=== PATIENT | female | born 1950 | race Caucasian/White ===

== ENCOUNTER 2019-03-24 17:06 | Inpatient (IN) ==
[2019-03-24 17:51] LABS: Basophils # (auto) 0.02 K/uL (0-0.2); Basophils % (auto) 0.2 %; Eosinophils # (auto) 0.33 K/uL (0-0.5); Eosinophils % (auto) 3.5 %; Hematocrit (blood only) 31.9 % (37-47); Immature Granulocytes # (auto) 0.02 K/uL (0.00-0.02); Immature Granulocytes % (auto) 0.2 %; Lymphocytes # (auto) 1.74 K/uL (1.2-3.4); Lymphocytes % (auto) 18.6 %; Mean Corpuscular Hemoglobin 28.1 pg (25-34); Mean Corpuscular Hgb Conc 31.3 g/dL (32-36); Mean Corpuscular Volume 89.6 fL (80-100); Mean Platelet Volume 9.7 fL (7.4-10.4); Monocytes # (auto) 0.68 K/uL (0.11-0.59); Monocytes % (auto) 7.3 %; Neutrophils # (auto) 6.58 K/uL (1.4-6.5); Neutrophils % (auto) 70.2 %; Platelet Count 266 K/uL (130-400); RDW Coefficient of Variation 14.8 % (11.5-14.5); RDW Standard Deviation 48.6 fL (36.4-46.3); Red Blood Count 3.56 M/uL (4.2-5.4); White Blood Count 9.37 K/uL (4.8-10.8)
[2019-03-24 18:00] LABS: INR 1.1 (0.9-1.1); Prothrombin Time 10.8 Seconds (9.0-12.0)
--- NOTE | 2019-03-24 18:04 | XRay Report ---
XR hip RT 2V w pelvis HISTORY: 68 years-old Female fall, pain, ?frx acute right hip pain status post fall COMPARISON: None available TECHNIQUE: AP view of the pelvis with 2 views of the right hip FINDINGS: There is an acute obliquely oriented fracture of the subtrochanteric proximal femoral metadiaphysis d emonstrating 5.8 cm impaction/opposition with 30 degrees apex lateral angulation. Mild adjacent soft tissue swelling. Moderate right hip osteoarthritis. Femoral head appears intact. No intertrochanteric or femoral neck fracture identified. Arterial calcifications are noted. IMPRESSION: Acute obliquely oriented displaced and angulated fracture of the proximal femoral shaft. The above report was generated using voice recognition software. It may contain grammatical, syntax o r spelling errors. Electronically signed by: Neil Cox M.D. 03/24/2019 6:03 PM
--- NOTE | 2019-03-24 18:05 | XRay Report ---
XR chest 1V portable HISTORY: Fall. Right hip pain. COMPARISON: None. FINDINGS: The lungs are clear. Cardiac silhouette is normal in size. No pleural effusions. No pneumot horax. IMPRESSION: No acute process. Electronically signed by: Pepito Womack M.D. 03/24/2019 6:04 PM
[2019-03-24 18:12] LABS: Albumin Level 3.4 gm/dl (3.4-5.0); BUN Creatinine Ratio 19.5 (10-20); Calcium 8.7 mg/dl (8.5-10.1); Creatinine Clr Calc Pharmacy 55.1 ml/min; Est GFR (African American) 72.7; Est GFR (Non-African American) 62.7; Potassium 5.6 mmol/L (3.5-5.1)
[2019-03-24] MEDS ORDERED: fentaNYL citrate 100 MCG/2 ML VIAL IV STA (18:14)
[2019-03-24 18:15] LABS: Albumin Globulin Ratio 1.1 (0.9-2); Bilirubin,Total 0.3 mg/dl (0.2-1); Globulin 3.1 gm/dl (2.5-4.0); Total Protein 6.5 gm/dl (6.4-8.2)
--- NOTE | 2019-03-24 18:59 | XRay Report ---
XR femur RT 2V routine HISTORY: 68 years-old Female frx acute fracture of the proximal right femur COMPARISON: Pelvis and right hip radiographs of same day at 5:45 PM TECHNIQUE: 2 views of the right femur FINDINGS: Acute displaced fracture of the proximal femoral shaft redemonstrated. The mid and distal femur appea rs intact as visualized. Demineralized appearance of the bones with degenerative changes of the knee. The study is limited secondary to positioning. Arterial calcifications noted. Soft tissue swelling o f the proximal thigh. IMPRESSION: 1. Acute displaced fracture of the proximal right femur redemonstrated. 2. Demineralized appearance of the bones with degenerative changes of the knee. The above report was generated using voice recognition software. It may contain grammatical, syntax o r spelling errors. Electronically signed by: Neil Cox M.D. 03/24/2019 6:57 PM
[2019-03-24] MEDS ORDERED: SODIUM CHLORIDE 0.9% 500 ML IV ONE ×2 (19:27→23:10)
[2019-03-24] MEDS ORDERED: INSULIN HUMAN REGULAR PER UNIT 10 UNITS in SYRINGE 0 ML IV STA (19:27)
[2019-03-24] MEDS ORDERED: MoRPHine SULFATE 4 MG/ML 1 ML CARP\\VIAL IV STA (19:42)
[2019-03-24] MEDS ORDERED: ACETAMINOPHEN 1,000 MG/100 ML VIAL IV STA (19:42)
--- NOTE | 2019-03-24 19:47 | Emergency Department Note ---
Entered by Radha Coto acting as a scribe for History of Present Illness General Chief complaint: Fall Stated complaint: HIP PAIN Time Seen by Provider: 03/24/19 17:07 Source: patient Mode of arrival: wheelchair Limitations: no limitations History of Present Illness Onset (ago): hour(s) 2 Location: hip (right) Radiation: non-radiation Pain Consistency: + constant Current Pain Intensity: 10 Relieved By: + medication (Fentanyl) Exacerbated By: + movement Associated symptoms: + other (-arm or chest injury) Treatments prior to arrival: other (Fentanyl, Zofran) The patient is a 68 year old female who presents to the ED with complaints of right hip pain after a fall. She was getting ready to walk into a store when she tripped and landed on her right hip. She rates her discomfort as a 10/10 in severity. She has not been able to walk since the fall. She was given Fentanyl and Zofran in the field and states they have provided good relief. She did not hit her head during the fall and denies any LOC. The patient denies any injuries to the arm or chest. She does not take daily blood thinners. Home Medications Home Medications Medication Instructions Recorded Confirmed Type diazepam 5 mg PO HS PRN 03/24/19 03/24/19 History glimepiride 0 mg PO DAILY 03/24/19 03/24/19 History levothyroxine 0 mcg PO DAILYBB 03/24/19 03/24/19 History lisinopril 5 mg PO DAILY 03/24/19 03/24/19 History metformin 1,000 mg PO AMPM 03/24/19 03/24/19 History Allergies Allergy/AdvReac Type Severity Reaction Status Date / Time aspirin Allergy Unknown CAN NOT Verified 03/24/19 17:37 TAKE DUE TO BLEEDING IN EYES Past Med/Surg History Medical History Transverse myelitis Hypertension Diabetes mellitus Social History Preferred Language: Macedonian Feels Safe at Home: Yes Smoking Status: Never smoker Review of Systems See HPI for pertinent positives & negatives. and A total of 10 systems reviewed and were otherwise negative Physical Exam Vital Signs Vital Signs - 24 hr 03/24/19 17:06 03/24/19 18:20 Temperature 36.7 C Temperature Source Oral Sepsis Recent Fever Within 48 Hours No Sepsis New/Unexplained Change in Mental Status No Sepsis Action Taken by Nursing No Action Required Pulse Rate 118 H Pulse Rate [Apical] 118 H 113 H Respiratory Rate 14 16 Respiratory Effort / Characteristics Non-Labored Spontaneous Respiratory Depth Normal Respiratory Pattern Regular Blood Pressure 179/97 H Blood Pressure [Right Arm] 179/97 H 141/73 H Blood Pressure Mean 124 Blood Pressure Mean [Right Arm] 124 95 Blood Pressure Position Lying Blood Pressure Position [Right Arm] Lying Pulse Oximetry 95 94 Oxygen Delivery Method Room Air GENERAL: Awake, alert, appears uncomfortable on litter. HENT: Normocephalic, atraumatic. EYES: Normal conjunctiva. Sclera non-icteric. NECK: Supple. No nuchal rigidity. No midline tenderness. RESPIRATORY: Clear to auscultation with slight forced expiratory wheeze. Normal respiratory effort. CARDIAC: Normal rate. Normal rhythm. Extremities warm and well perfused. GI: Soft, non-distended. No tenderness to palpation. No rebound or guarding. RECTAL: Deferred. MUSCULOSKELETAL: Atraumatic. Chest examination reveals no tenderness. There is no CVA tenderness to palpation. No midline cervical tenderness. LOWER EXTREMITIES: Calves are equal size bilaterally and non-tender. Pedal 1+ edema. Tenderness of right hip and pain with ROM here. NEURO: No slurred speech, no aphasia, decreased motor and sensory function of LE's. SKIN: Warm and dry. No rash or jaundice noted. Course 1712: The patient was evaluated in room B7 and a complete history and physical were performed. 1833: I discussed the patients case with Dr. Ferris Willie [facility]. The patient will be further evaluated. 1842: I discussed the patients case with Dr. Modesto Manzo. The patient will be further evaluated. 1846: I reevaluated the patient. She is resting comfortably. I discussed her results and my recommendation she remain in the hospital for further evaluation and management and she verbalized complete understanding and agreement. Consultations Consultation #1: I discussed the patients case with Willie Begum [facility]. The patient will be further evaluated. Time: 18:33 Consultation #2: I discussed the patients case with Dr. Modesto Manzo. The patient will be further evaluated. Time: 18:42 Administered Medications Discontinued Medications Fentanyl Citrate (Fentanyl Citrate) 100 mcg IV NOW STA Stop: 03/24/19 18:15 Last Admin: 03/24/19 18:19 Dose: 100 mcg Documented by: [id number] Medical Decision Making Differential Diagnosis Differential diagnoses include major intracranial, cervical, spinal, thoracic, abdominal, pelvic and neurologic injury. Fracture, contusion, sprain, strain, laceration, abrasions included as well. Medical Records Attestation: I reviewed the patient's medical records. Home Medications Current Medication List: was personally reviewed by me Laboratory Data Attestation: I reviewed the patient's lab results. Result diagrams: 03/24/19 17:33 03/24/19 17:33 Lab Results 03/24/19 03/24/19 03/24/19 Range/Units 17:33 17:33 17:33 WBC 9.37 (4.8-10.8) K/uL RBC 3.56 L (4.2-5.4) M/uL Hgb 10.0 L (12.0-16.0) g/dL Hct 31.9 L (37-47) % MCV 89.6 (80-100) fL MCH 28.1 (25-34) pg MCHC 31.3 L (32-36) g/dL RDW Std Deviation 48.6 H (36.4-46.3) fL RDW Coeff of Neal 14.8 H (11.5-14.5) % Plt Count 266 (130-400) K/uL MPV 9.7 (7.4-10.4) fL Immature Gran % (Auto) 0.2 % Neut % (Auto) 70.2 % Lymph % (Auto) 18.6 % [place] % (Auto) 7.3 % Eos % (Auto) 3.5 % Baso % (Auto) 0.2 % Immature Gran # (Auto) 0.02 (0.00-0.02) K/uL Neut # (Auto) 6.58 H (1.4-6.5) K/uL Lymph # (Auto) 1.74 (1.2-3.4) K/uL [place] # (Auto) 0.68 H (0.11-0.59) K/uL Eos # (Auto) 0.33 (0-0.5) K/uL Baso # (Auto) 0.02 (0-0.2) K/uL PT 10.8 (9.0-12.0) Seconds INR 1.1 (0.9-1.1) Sodium 140 (136-145) mmol/L Potassium 5.6 H (3.5-5.1) mmol/L Chloride 107 (98-107) mmol/L Carbon Dioxide 23 (21-32) mmol/L Anion Gap 10.0 (3-11) BUN 18 (7-18) mg/dl Creatinine 0.93 (0.6-1.2) mg/dl Est Cr Clr Drug Dosing 55.1 ml/min Est GFR ( Amer) 72.7 Est GFR (Non-Af Amer) 62.7 BUN/Creatinine Ratio 19.5 (10-20) Glucose 190 H (70-99) mg/dl Calcium 8.7 (8.5-10.1) mg/dl Total Bilirubin 0.3 (0.2-1) mg/dl AST 48 H (15-37) U/L ALT 77 (12-78) U/L Alkaline Phosphatase 77 (45-117) U/L Total Protein 6.5 (6.4-8.2) gm/dl Albumin 3.4 (3.4-5.0) gm/dl Globulin 3.1 (2.5-4.0) gm/dl Albumin/Globulin Ratio 1.1 (0.9-2) Blood Type Antibody Screen 03/24/19 Range/Units 17:33 WBC (4.8-10.8) K/uL RBC (4.2-5.4) M/uL Hgb (12.0-16.0) g/dL Hct (37-47) % MCV (80-100) fL MCH (25-34) pg MCHC (32-36) g/dL RDW Std Deviation (36.4-46.3) fL RDW Coeff of Neal (11.5-14.5) % Plt Count (130-400) K/uL MPV (7.4-10.4) fL Immature Gran % (Auto) % Neut % (Auto) % Lymph % (Auto) % [place] % (Auto) % Eos % (Auto) % Baso % (Auto) % Immature Gran # (Auto) (0.00-0.02) K/uL Neut # (Auto) (1.4-6.5) K/uL Lymph # (Auto) (1.2-3.4) K/uL [place] # (Auto) (0.11-0.59) K/uL Eos # (Auto) (0-0.5) K/uL Baso # (Auto) (0-0.2) K/uL PT (9.0-12.0) Seconds INR (0.9-1.1) Sodium (136-145) mmol/L Potassium (3.5-5.1) mmol/L Chloride (98-107) mmol/L Carbon Dioxide (21-32) mmol/L Anion Gap (3-11) BUN (7-18) mg/dl Creatinine (0.6-1.2) mg/dl Est Cr Clr Drug Dosing ml/min Est GFR ( Amer) Est GFR (Non-Af Amer) BUN/Creatinine Ratio (10-20) Glucose (70-99) mg/dl Calcium (8.5-10.1) mg/dl Total Bilirubin (0.2-1) mg/dl AST (15-37) U/L ALT (12-78) U/L Alkaline Phosphatase (45-117) U/L Total Protein (6.4-8.2) gm/dl Albumin (3.4-5.0) gm/dl Globulin (2.5-4.0) gm/dl Albumin/Globulin Ratio (0.9-2) Blood Type A Positive Antibody Screen NEGATIVE Imaging Data Radiologist's Impression: Radiology results as stated below per my review and the radiologist's interpretation: XR hip RT 2V w pelvis HISTORY: 68 years-old Female fall, pain, ?frx acute right hip pain status post fall COMPARISON: None available TECHNIQUE: AP view of the pelvis with 2 views of the right hip FINDINGS: There is an acute obliquely oriented fracture of the subtrochanteric proximal femoral metadiaphysis demonstrating 5.8 cm impaction/opposition with 30 degrees apex lateral angulation. Mild adjacent soft tissue swelling. Moderate right hip osteoarthritis. Femoral head appears intact. No intertrochanteric or femoral neck fracture identified. Arterial calcifications are noted. IMPRESSION: Acute obliquely oriented displaced and angulated fracture of the proximal femoral shaft. The above report was generated using voice recognition software. It may contain grammatical, syntax or spelling errors. Electronically signed by: Neil Cox M.D. 03/24/2019 6:03 PM XR chest 1V portable HISTORY: Fall. Right hip pain. COMPARISON: None. FINDINGS: The lungs are clear. Cardiac silhouette is normal in size. No pleural effusions. No pneumothorax. IMPRESSION: No acute process. Electronically signed by: Pepito Womack M.D. 03/24/2019 6:04 PM XR femur RT 2V routine HISTORY: 68 years-old Female frx acute fracture of the proximal right femur COMPARISON: Pelvis and right hip radiographs of same day at 5:45 PM TECHNIQUE: 2 views of the right femur FINDINGS: Acute displaced fracture of the proximal femoral shaft redemonstrated. The mid and distal femur appears intact as visualized. Demineralized appearance of the bones with degenerative changes of the knee. The study is limited secondary to p ositioning. Arterial calcifications noted. Soft tissue swelling of the proximal thigh. IMPRESSION: 1. Acute displaced fracture of the proximal right femur redemonstrated. 2. Demineralized appearance of the bones with degenerative changes of the knee. The above report was generated using voice recognition software. It may contain grammatical, syntax or spelling errors. Electronically signed by: Neil Cox M.D. 03/24/2019 6:57 PM ECG Data Attestation: I personally reviewed and interpreted this ECG as follows: Indication: other (fall) Rate (beats per minute): 117 Rhythm: sinus tachycardia Findings: + other (Normal intervals); no PVC, no ST depression and no ST elevation Blood Pressure Blood Pressure Findings: Elevated blood pressure Blood Pressure Disposition: further management by hospitalist Head Trauma GCS Score: 15 MDM Narrative Patient is a 68-year-old female with a past medical history including diabetes, hypertension, hyperlipidemia and transverse myelitis with chronic lower extremity numbness normally ablates with canes presenting today after a fall via ambulance complaining of hip pain. She was got his son [facility] the [facility] and tripped and fell onto her right buttock. Right leg shortening severe hip pain. Denies striking her head. Denies any coagulation or antiplatelet usage. Denies pain in her head neck chest or abdomen at this time. Denies injury to the upper extremities. Chronic numbness persistent lower extremities. No evidence of open R femur fracture here. X-ray of the hip/pelvis/femur was obtained. Received fentanyl and Zofran prior to arrival. Pain controlled upon arrival; worse with movement. No believe additional head imaging of the head and neck at this time. Chest x-ray and x-ray of the hip obtained. Fracture noted in the right hip unfortunately. No prior orthopedic work completed. Discussed with on-call orthopedics and given her chronic medical issues discussed with hospitalist for admission. Slight hyperkalemia noted on labs without EKG changes. Hospitalist aware. Orthopedics evaluated in the ER and will plan for possible operative repair tomorrow. Fentanyl and tylenol given for pain. Impression & Plan Closed fracture of proximal end of femur, Fall, Hyperkalemia Discharge Plan Visit Data Chief Complaint: Fall Stated Complaint: HIP PAIN ED Provider: Tevin Holland Discharge Problem: Closed fracture of proximal end of femur, Fall, Hyperkalemia Patient Disposition: Being Evaluated by Hospitalist Forms Stand Alone Forms: My [facility] Prescriptions Prescriptions: No Action glimepiride 1 mg tablet PO DAILY RF: 0 levothyroxine 50 mcg tablet PO DAILYBB RF: 0 metformin 1,000 mg tablet 1,000 mg PO AMPM RF: 0 lisinopril 5 mg tablet 5 mg PO DAILY RF: 0 diazepam 5 mg tablet 5 mg PO HS PRN (Reason: Unknown) RF: 0 Referrals Referrals: Hung Kaur MD [Primary Care Provider] - The scribe's documentation has been prepared under my direction and personally reviewed by me in its entirety. I confirm that the note above accurately reflects all work, treatment, procedures, and medical decision making performed by me.
[2019-03-24] MEDS ORDERED: INSULIN HUMAN REGULAR PER UNIT 5 UNITS in SYRINGE 4.95 ML IV STA (20:15)
--- NOTE | 2019-03-24 20:16 | History & Physical Report ---
Date of Service March 24, 2019 Assessment & Plan (1) Closed right hip fracture: Secondary to mechanical fall hypertension, slightly elevated secondary discomfort Hyperkalemia, possibly from home ACEI, mild rhabdomyolysis (Recurrent hyperkalemia on review of outpatient chemistries from last year) DM 2 on oral medications, well-controlled as of recent outpatient hemoglobin A1c of 6.5 last February 2019 Hypothyroidism, TSH noted to be elevated on last month's outpatient blood draw (4.59) hx transverse myelitis, deficits at baseline left renal mass, likely benign and stable measurement as of recent outpatient [facility] [place] Urology visit March 2018 Acute on chronic anemia, hemoglobin drop from baseline (low iron indices on recent outpatient anemia blood work possibly related to gastric bypass surgery; no prior colonoscopies, no history of overt GI/ blood loss as per patient account) past tobacco abuse. Medical telemetry for hyperkalemia Orthopedics consult RE right hip fracture (Patient already seen by Dr. Ferris at the ER. Surgery recommended tomorrow a.m.) DC lisinopril given recurrent hyperkalemic episodes IV insulin, IVF Recheck serum potassium Follow CPK Initiate Norvasc for BP control. Final preop medical evaluation pending repeat serum potassium result. Trend H&H, transfuse PRBC if hemoglobin less than 7 and/or for symptomatic anemia Basal insulin, ISS BG goal 140-180 DVT prophylaxis. SCDs for now Recommend pharmacologic anticoagulation once bleeding risk is deemed to be minimal and negligible pending Orthopedics re-eval. Full code History of Present Illness Chief Complaint: Fall, right hip pain Primary Care Provider: Hung Kaur MD History obtained from patient, family, and records. Medical history significant for hypertension, hyperlipidemia as per records, DM 2 on oral medications, transverse myelitis, left renal mass, chronic anemia (baseline hemoglobin 11), past tobacco abuse. Recent confinement July 2004 for sudden onset lower extremity weakness attributed to transverse myelitis. Patient transferred to [facility] [place]. Minimal improvement of neurologic deficits with steroid Rx at [facility] [place] [facility]. Patient was entering a local convenience store with her son when she tripped on the sidewalk causing her to fall down on her right side. No head trauma, no chest pain, no S OB, no syncope, no LOC. Patient noted achy right hip pain. Unable to get up. Medical History as above Surgical History : Toe amputation, section, gastric bypass, cataract surgery, vitrectomy, tonsillectomy Family History : Diabetes Personal/Social history : Past tobacco abuse, no EtOH intake, disabled Baseline Functionality : Still able to do housework at the first floor level of her home which has been customized since disability, able to walk with 2 canes, No rest/exertional chest pain, S OB prior to injury Allergies Allergy/AdvReac Type Severity Reaction Status Date / Time aspirin Allergy Unknown CAN NOT Verified 03/24/19 17:37 TAKE DUE TO BLEEDING IN EYES lisinopril AdvReac Mild hyperkalemi Verified 03/25/19 03:26 a Home Medications Home Medications Medication Instructions Recorded Confirmed Type diazepam 5 mg PO HS PRN 03/24/19 03/24/19 History glimepiride 0 mg PO DAILY 03/24/19 03/24/19 History levothyroxine 0 mcg PO DAILYBB 03/24/19 03/24/19 History lisinopril 5 mg PO DAILY 03/24/19 03/24/19 History metformin 1,000 mg PO AMPM 03/24/19 03/24/19 History Past Med/Surg History Medical History Transverse myelitis Hypertension Diabetes mellitus Surgical History H/O gastric bypass Social History Preferred Language: Vietnamese Communication Ability: Effective Telegraph Messenger Required: No Beliefs That Will Affect Care: None Current Living Situation: Spouse Other Information That Helps Us Care for You: No Feels Safe at Home: Yes Safety Concerns: Feels Safe At This Time Smoking Status: Never smoker Do You Dip or Chew Tobacco: No ; Hx Alcohol Use: Yes Hx Substance Use: No Review of Systems Review of Systems: As per HPI, all 10 systems reviewed, all other ROS negative Physical Exam Physical Exam: GENERAL: Slightly uncomfortable, slightly anxious, no respiratory distress SKIN: Pallor , warm HEENT: Pale palpebral conjunctivae, no ptosis, dry buccal mucosa NECK : Supple, no tenderness CHEST : CTA, no tenderness HEART : Tachycardic , no obvious murmurs ABDOMEN: Some distention, nontender EXTREMITIES : RLE noted to be shortened, right hip tenderness, no other conspicuous deformities noted NEUROLOGIC : Coherent, no facial asymmetry; MMTs BUE 4/5, MMTs BLE 1/5 Results & Data Vital Signs (Past 12 Hours) Vital Signs Temp Pulse Pulse Resp BP BP Pulse Ox 03/24/19 18:20 113 H 16 141/73 H 94 03/24/19 17:06 36.7 C 118 H 118 H 14 179/97 H 179/97 H 95 Laboratory Results Laboratory Results WBC 9.37 K/uL (4.8-10.8) 03/24/19 17:33 RBC 3.56 M/uL (4.2-5.4) L 03/24/19 17:33 Hgb 10.0 g/dL (12.0-16.0) L 03/24/19 17:33 Hct 31.9 % (37-47) L 03/24/19 17:33 MCV 89.6 fL (80-100) 03/24/19 17:33 MCH 28.1 pg (25-34) 03/24/19 17:33 MCHC 31.3 g/dL (32-36) L 03/24/19 17:33 RDW Std Deviation 48.6 fL (36.4-46.3) H 03/24/19 17:33 RDW Coeff of Neal 14.8 % (11.5-14.5) H 03/24/19 17:33 Plt Count 266 K/uL (130-400) 03/24/19 17:33 MPV 9.7 fL (7.4-10.4) 03/24/19 17:33 Immature Gran % (Auto) 0.2 % 03/24/19 17:33 Neut % (Auto) 70.2 % 03/24/19 17:33 Lymph % (Auto) 18.6 % 03/24/19 17:33 [place] % (Auto) 7.3 % 03/24/19 17:33 Eos % (Auto) 3.5 % 03/24/19 17:33 Baso % (Auto) 0.2 % 03/24/19 17:33 Immature Gran # (Auto) 0.02 K/uL (0.00-0.02) 03/24/19 17:33 Neut # (Auto) 6.58 K/uL (1.4-6.5) H 03/24/19 17:33 Lymph # (Auto) 1.74 K/uL (1.2-3.4) 03/24/19 17:33 [place] # (Auto) 0.68 K/uL (0.11-0.59) H 03/24/19 17:33 Eos # (Auto) 0.33 K/uL (0-0.5) 03/24/19 17:33 Baso # (Auto) 0.02 K/uL (0-0.2) 03/24/19 17:33 PT 10.8 Seconds (9.0-12.0) 03/24/19 17:33 INR 1.1 (0.9-1.1) 03/24/19 17:33 Sodium 140 mmol/L (136-145) 03/24/19 17:33 Potassium 5.6 mmol/L (3.5-5.1) H 03/24/19 17:33 Chloride 107 mmol/L (98-107) 03/24/19 17:33 Carbon Dioxide 23 mmol/L (21-32) 03/24/19 17:33 Anion Gap 10.0 (3-11) 03/24/19 17:33 BUN 18 mg/dl (7-18) 03/24/19 17:33 Creatinine 0.93 mg/dl (0.6-1.2) 03/24/19 17:33 Est Cr Clr Drug Dosing 55.1 ml/min 03/24/19 17:33 Est GFR ( Amer) 72.7 03/24/19 17:33 Est GFR (Non-Af Amer) 62.7 03/24/19 17:33 BUN/Creatinine Ratio 19.5 (10-20) 03/24/19 17:33 Glucose 190 mg/dl (70-99) H 03/24/19 17:33 Calcium 8.7 mg/dl (8.5-10.1) 03/24/19 17:33 Total Bilirubin 0.3 mg/dl (0.2-1) 03/24/19 17:33 AST 48 U/L (15-37) H 03/24/19 17:33 ALT 77 U/L (12-78) 03/24/19 17:33 Alkaline Phosphatase 77 U/L (45-117) 03/24/19 17:33 Total Protein 6.5 gm/dl (6.4-8.2) 03/24/19 17:33 Albumin 3.4 gm/dl (3.4-5.0) 03/24/19 17:33 Globulin 3.1 gm/dl (2.5-4.0) 03/24/19 17:33 Albumin/Globulin Ratio 1.1 (0.9-2) 03/24/19 17:33 Blood Type A Positive 03/24/19 17:33 Antibody Screen NEGATIVE 03/24/19 17:33 Diagnostic Findings Right femoral x-ray: 1. Acute displaced fracture of the proximal right femur redemonstrated. 2. Demineralized appearance of the bones with degenerative changes of the knee. Chest x-ray : No acute process EKG as per my interpretation : Rate 115, sinus tachycardia, LAD, LAFB, low voltage, peaked T waves
[2019-03-24] MEDS ORDERED: NovoLIN-R INSULIN PER UNIT CHARGE ONE (20:24)
[2019-03-24] MEDS ORDERED: PROMETHAZINE 12.5 MG/50.5 ML NSS IV ONE (20:35)
[2019-03-24 21:05] LABS: Thyroid Stimulating Hormone 6.36 uIu/ml (0.300-4.500)
--- NOTE | 2019-03-24 21:06 | Orthopedic Consultation ---
Date of Consultation March 24, 2019 Assessment & Plan (1) Closed fracture of proximal end of femur: The patient is a 68 year old female who sustained a right proximal femur fracture from a ground level fall. The patients treatment options of conservative versus surgical intervention were discussed. I recommended surgery, once the patient was medically cleared, to allow for decreased morbidity and mortality, decrease pain, even though she is a limited ambulator. The patient and her family understands the risks of surgery, which include but are not limited to: bleeding, infection, re-operation, damage to nerves and arteries, continued pain, failure of the hardware, mal-union, non-union, DVT, and . They are also aware of the 20-30% mortality risk over the next year. The patient understands all of these instructions and explanations, all of their questions have been satisfactorily addressed. The patient has elected to proceed with surgery and the informed consent was signed. The patient will be placed on the add-on list for tomorrow. She will be NPO after midnight. She will require a Sal. She is NWB. She will be admitted to the hospitalist service. Present on Admission?: Yes History of Present Illness Reason for Consultation: Right proximal femur fracture. Requesting Physician: Harrison Ferris MD History of Present Illness 68 year old female, limited ambulator with 2 canes, mostly uses a wheel chair, fell while stepping up onto a curb with her son, injuring her right hip. She was brought to the ER where x-rays were obtained and found to have a right hip fracture. Prior to the fall she was felling her usual self. Denies any other injuries, CP, SOB, LOC. She will be admitted to the hospitalist service and I was consulted for orthopedic evaluation and treatment. Allergies Allergy/AdvReac Type Severity Reaction Status Date / Time aspirin Allergy Unknown CAN NOT Verified 03/24/19 17:37 TAKE DUE TO BLEEDING IN EYES Home Medications Home Medications Medication Instructions Recorded Confirmed Type diazepam 5 mg PO HS PRN 03/24/19 03/24/19 History glimepiride 0 mg PO DAILY 03/24/19 03/24/19 History levothyroxine 0 mcg PO DAILYBB 03/24/19 03/24/19 History lisinopril 5 mg PO DAILY 03/24/19 03/24/19 History metformin 1,000 mg PO AMPM 03/24/19 03/24/19 History Patient History Medical History Transverse myelitis Hypertension Diabetes mellitus Surgical History H/O gastric bypass Social History Preferred Language: Swazi Feels Safe at Home: Yes Smoking Status: Never smoker Review of Systems Review of Systems: All systems reviewed & are unremarkable except as noted in HPI & below Physical Exam Physical Exam: She is in obvious discomfort. Focusing on her RLE, 2+ PT pulse. Minimal sensation to light touch. No Toe or ankle dorsiflexion, minimal foot plantar flexion. Limb is shortened and externally rotated. Results & Data Vital Signs (Past 12 Hours) Vital Signs Temp Pulse Pulse Resp BP BP Pulse Ox 03/24/19 20:00 107 H 19 97 03/24/19 19:55 108 H 19 117/66 97 03/24/19 19:00 106 H 23 97 03/24/19 18:21 113 H 16 141/73 H 85 L 03/24/19 18:20 113 H 16 141/73 H 94 03/24/19 18:02 106 H 23 97 03/24/19 17:09 107 H 18 179/97 H 95 03/24/19 17:06 36.7 C 118 H 118 H 14 179/97 H 179/97 H 95 Laboratory Results 03/24/19 03/24/19 03/24/19 Range/Units 17:33 17:33 17:33 WBC (4.8-10.8) K/uL RBC (4.2-5.4) M/uL Hgb (12.0-16.0) g/dL Hct (37-47) % MCV (80-100) fL MCH (25-34) pg MCHC (32-36) g/dL RDW Std Deviation (36.4-46.3) fL RDW Coeff of Neal (11.5-14.5) % Plt Count (130-400) K/uL MPV (7.4-10.4) fL Immature Gran % (Auto) % Neut % (Auto) % Lymph % (Auto) % [place] % (Auto) % Eos % (Auto) % Baso % (Auto) % Immature Gran # (Auto) (0.00-0.02) K/uL Neut # (Auto) (1.4-6.5) K/uL Lymph # (Auto) (1.2-3.4) K/uL [place] # (Auto) (0.11-0.59) K/uL Eos # (Auto) (0-0.5) K/uL Baso # (Auto) (0-0.2) K/uL PT 10.8 (9.0-12.0) Seconds INR 1.1 (0.9-1.1) Sodium 140 (136-145) mmol/L Potassium 5.6 H (3.5-5.1) mmol/L Chloride 107 (98-107) mmol/L Carbon Dioxide 23 (21-32) mmol/L Anion Gap 10.0 (3-11) BUN 18 (7-18) mg/dl Creatinine 0.93 (0.6-1.2) mg/dl Est Cr Clr Drug Dosing 55.1 ml/min Est GFR ( Amer) 72.7 Est GFR (Non-Af Amer) 62.7 BUN/Creatinine Ratio 19.5 (10-20) Glucose 190 H (70-99) mg/dl Calcium 8.7 (8.5-10.1) mg/dl Total Bilirubin 0.3 (0.2-1) mg/dl AST 48 H (15-37) U/L ALT 77 (12-78) U/L Alkaline Phosphatase 77 (45-117) U/L Total Protein 6.5 (6.4-8.2) gm/dl Albumin 3.4 (3.4-5.0) gm/dl Globulin 3.1 (2.5-4.0) gm/dl Albumin/Globulin Ratio 1.1 (0.9-2) TSH Pending Blood Type A Positive Antibody Screen NEGATIVE 03/24/19 Range/Units 17:33 WBC 9.37 (4.8-10.8) K/uL RBC 3.56 L (4.2-5.4) M/uL Hgb 10.0 L (12.0-16.0) g/dL Hct 31.9 L (37-47) % MCV 89.6 (80-100) fL MCH 28.1 (25-34) pg MCHC 31.3 L (32-36) g/dL RDW Std Deviation 48.6 H (36.4-46.3) fL RDW Coeff of Neal 14.8 H (11.5-14.5) % Plt Count 266 (130-400) K/uL MPV 9.7 (7.4-10.4) fL Immature Gran % (Auto) 0.2 % Neut % (Auto) 70.2 % Lymph % (Auto) 18.6 % [place] % (Auto) 7.3 % Eos % (Auto) 3.5 % Baso % (Auto) 0.2 % Immature Gran # (Auto) 0.02 (0.00-0.02) K/uL Neut # (Auto) 6.58 H (1.4-6.5) K/uL Lymph # (Auto) 1.74 (1.2-3.4) K/uL [place] # (Auto) 0.68 H (0.11-0.59) K/uL Eos # (Auto) 0.33 (0-0.5) K/uL Baso # (Auto) 0.02 (0-0.2) K/uL PT (9.0-12.0) Seconds INR (0.9-1.1) Sodium (136-145) mmol/L Potassium (3.5-5.1) mmol/L Chloride (98-107) mmol/L Carbon Dioxide (21-32) mmol/L Anion Gap (3-11) BUN (7-18) mg/dl Creatinine (0.6-1.2) mg/dl Est Cr Clr Drug Dosing ml/min Est GFR ( Amer) Est GFR (Non-Af Amer) BUN/Creatinine Ratio (10-20) Glucose (70-99) mg/dl Calcium (8.5-10.1) mg/dl Total Bilirubin (0.2-1) mg/dl AST (15-37) U/L ALT (12-78) U/L Alkaline Phosphatase (45-117) U/L Total Protein (6.4-8.2) gm/dl Albumin (3.4-5.0) gm/dl Globulin (2.5-4.0) gm/dl Albumin/Globulin Ratio (0.9-2) TSH Blood Type Antibody Screen Diagnostic Findings RADIOGRAPHS: AP Pelvis, AP and lateral Right hip show a displaced subtroch femur fracture.
[2019-03-24 21:17] LABS: T4 Free Thyroxine 1.15 ng/dl (0.8-1.6)
[2019-03-24] MEDS ORDERED: MAGNESIUM HYDROXIDE SUSP 30 ML UDC PO PRN (21:43)
[2019-03-24] MEDS ORDERED: DEXTROSE 50% 50 ML SYRINGE IV PRN (21:43)
[2019-03-24] MEDS ORDERED: diazePAM 5 MG TABLET PO PRN (21:43)
[2019-03-24] MEDS ORDERED: GLUCAGON FOR INJ 1 MG VIAL SQ PRN (21:43)
[2019-03-24] MEDS ORDERED: INSULIN ASPART 100 UNITS/ML 3 ML PEN SC SCH (21:43)
[2019-03-24] MEDS ORDERED: GLUCOSE 40% GEL 15 GM TUBE PO PRN (21:43)
[2019-03-24] MEDS ORDERED: CARBOHYDRATES FOR HYPOGLYCEMIA PO PRN (21:43)
[2019-03-24] MEDS ORDERED: PROMETHAZINE HCL 12.5 MG in SODIUM CHLORIDE 0.9% 50 ML IV PRN (21:43)
[2019-03-24] MEDS ORDERED: NALOXONE HCL 0.4 MG/1 ML VIAL/CARP IV PRN (21:43)
[2019-03-24] MEDS ORDERED: GLUCOSE 10 TABS/TUBE PO PRN (21:43)
[2019-03-24] MEDS: AMLODIPINE BESYLATE 5 MG TAB PO SCH (22:28)
[2019-03-24] MEDS: DOCUSATE SODIUM/SENNA 50/8.6MG TAB PO SCH (22:33)
[2019-03-24] MEDS: OXYCODONE HCL IR 5 MG TAB (IMMEDIATE RELEASE) PO PRN (22:34)
[2019-03-24 23:57] LABS: Potassium 6.3 mmol/L (3.5-5.1)
[2019-03-25] MEDS: MoRPHine SULFATE 2 MG/ML CARP IV PRN ×6 (00:01→23:24)
[2019-03-25] MEDS ORDERED: SODIUM CHLORIDE 0.9% 1000ML 1,000 ML IV STA (00:01)
[2019-03-25] MEDS ORDERED: DEXTROSE 50% 50 ML SYRINGE IV ONE ×2 (00:03→05:11)
[2019-03-25] MEDS ORDERED: INSULIN HUMAN REGULAR PER UNIT 10 UNITS in SYRINGE 9.9 ML IV STA ×2 (00:23→05:46)
[2019-03-25] MEDS ORDERED: CALCIUM GLUCONATE 10% 1,000 MG in SODIUM CHLORIDE 0.9% 50 ML IV STA (00:24)
[2019-03-25] MEDS ORDERED: SODIUM CHLORIDE 0.9% 1000ML 1,000 ML IV ONE (00:30)
[2019-03-25 00:34] LABS: Appearance Urine Clear (Clear); Bacteria Urine Automated 4+ (Negative); Bilirubin Urine Negative (Negative); Blood Urine Negative (Negative); Color Urine Yellow; Epithelial Cell Urine Auto 20-30 /lpf (0-5); Glucose Urine UA Negative (Negative); Ketones Urine Negative (Negative); Leukocyte Esterase Urine Trace (Negative); Nitrite Urine Negative (Negative); Protein Urine Negative (Negative); RBC Urine Automated 0-4 /hpf (0-4); Specific Gravity Urine 1.018 (1.000-1.030); Urobilinogen Urine Negative (Negative)
[2019-03-25] MEDS ORDERED: INSULIN GLARGINE SOLOSTAR 100 UNITS/ML 3 ML PEN SQ STA (01:20)
[2019-03-25] MEDS ORDERED: SODIUM CHLORIDE 0.9% 1000ML 1,000 ML IV SCH ×3 (01:30→02:00)
[2019-03-25] MEDS ORDERED: Nursing to Pharmacy Communication ONE (02:23)
[2019-03-25] MEDS: INSULIN ASPART 100 UNITS/ML 3 ML PEN SC SCH ×5 (03:01→23:17)
[2019-03-25 04:16] LABS: Basophils # (auto) 0.02 K/uL (0-0.2); Basophils % (auto) 0.2 %; Eosinophils # (auto) 0.01 K/uL (0-0.5); Eosinophils % (auto) 0.1 %; Hematocrit (blood only) 25.3 % (37-47); Hemoglobin 8.2 g/dL (12.0-16.0); Immature Granulocytes # (auto) 0.02 K/uL (0.00-0.02); Immature Granulocytes % (auto) 0.2 %; Lymphocytes # (auto) 1.54 K/uL (1.2-3.4); Lymphocytes % (auto) 15.5 %; Mean Corpuscular Hemoglobin 28.6 pg (25-34); Mean Corpuscular Hgb Conc 32.4 g/dL (32-36); Mean Corpuscular Volume 88.2 fL (80-100); Mean Platelet Volume 9.1 fL (7.4-10.4); Monocytes # (auto) 1.04 K/uL (0.11-0.59); Monocytes % (auto) 10.4 %; Neutrophils # (auto) 7.33 K/uL (1.4-6.5); Neutrophils % (auto) 73.6 %; Platelet Count 238 K/uL (130-400); RDW Coefficient of Variation 14.7 % (11.5-14.5); RDW Standard Deviation 48.1 fL (36.4-46.3); Red Blood Count 2.87 M/uL (4.2-5.4); White Blood Count 9.96 K/uL (4.8-10.8)
[2019-03-25 04:38] LABS: Calcium 7.5 mg/dl (8.5-10.1); Creatinine Clr Calc Pharmacy 62.5 ml/min; Est GFR (African American) 84.6; Potassium 5.2 mmol/L (3.5-5.1)
[2019-03-25] MEDS: SODIUM CHLORIDE 0.45 % 1,000 ML IV SCH ×3 (05:59→17:24)
[2019-03-25] MEDS: OXYCODONE HCL IR 5 MG TAB (IMMEDIATE RELEASE) PO PRN (09:35)
--- NOTE | 2019-03-25 09:46 | Orthopedic Progress Note ---
Date of Service March 25, 2019 Assessment & Plan (1) Closed fracture of proximal end of femur: The patient is a 68 year old female who sustained a right proximal femur fracture from a ground level fall. The patients treatment options of conservative versus surgical intervention were discussed last evening with Dr Ferris. The consent was signed by both. The patient and her family understands the risks of surgery, which include but are not limited to: bleeding, infection, re-operation, damage to nerves and arteries, continued pain, failure of the hardware, mal-union, non-union, DVT, and . They are also aware of the 20- 30% mortality risk over the next year. The patient understands all of these instructions and explanations, all of their questions have been satisfactorily addressed. The patient has elected to proceed with surgery and the informed consent was signed by her and Dr Ferris last evening. She has been NPO. She is aware surgery will be sometime this afternoon. Dr Ferris aware of the above and will see patient in Pre-Op holding after surgical cases. Subjective Patient resting in bed, remains on bedrest. Has been NPO since midnight. Nurse was in room giving patient an oxycodone for her pain with sip of water. Patient says pain medication helping her discomfort. Catheter, B LE SCDs in place. Aware of planned surgery this afternoon for ORIF of right proximal hip fracture. Also aware she was cleared for surgery from medicine. Physical Exam Physical Exam: Focused R LE exam: 2+ DP and PT pulses. Sensation diminished with minimal sensation noted to her foot. Minimal ankle and toe dorsiflexion. At rest is plantar flexed. NO contracture and PROM WNL. Calve is soft and nontender. Pain with logrolling of right hip. No pain with gentle PROM of right knee. Skin intact to RLE. Results & Data Vital Signs (Past 12 Hours) Vital Signs Temp Pulse Pulse Resp BP BP Pulse Ox 03/25/19 08:15 106 H 03/25/19 07:19 36.9 C 103 H 18 113/69 96 03/25/19 04:15 36.8 C 103 H 16 112/60 95 03/25/19 02:11 100 H 03/24/19 23:00 37 C 102 H 18 113/72 96 03/24/19 22:38 107 H 20 105/65 96 03/24/19 22:08 106 H Laboratory Results 03/25/19 03/25/19 03/25/19 Range/Units 07:47 07:34 06:04 WBC (4.8-10.8) K/uL RBC (4.2-5.4) M/uL Hgb (12.0-16.0) g/dL Hct (37-47) % MCV (80-100) fL MCH (25-34) pg MCHC (32-36) g/dL RDW Std Deviation (36.4-46.3) fL RDW Coeff of Neal (11.5-14.5) % Plt Count (130-400) K/uL MPV (7.4-10.4) fL Immature Gran % (Auto) % Neut % (Auto) % Lymph % (Auto) % [place] % (Auto) % Eos % (Auto) % Baso % (Auto) % Immature Gran # (Auto) (0.00-0.02) K/uL Neut # (Auto) (1.4-6.5) K/uL Lymph # (Auto) (1.2-3.4) K/uL Pike # (Auto) (0.11-0.59) K/uL Eos # (Auto) (0-0.5) K/uL Baso # (Auto) (0-0.2) K/uL PT (9.0-12.0) Seconds INR (0.9-1.1) Sodium (136-145) mmol/L Potassium 4.4 D (3.5-5.1) mmol/L Chloride (98-107) mmol/L Carbon Dioxide (21-32) mmol/L Anion Gap (3-11) BUN (7-18) mg/dl Creatinine (0.6-1.2) mg/dl Est Cr Clr Drug Dosing ml/min Est GFR ( Amer) Est GFR (Non-Af Amer) BUN/Creatinine Ratio (10-20) Glucose (70-99) mg/dl POC Glucose 129 H (70-99) Calcium (8.5-10.1) mg/dl Total Bilirubin (0.2-1) mg/dl AST (15-37) U/L ALT (12-78) U/L Alkaline Phosphatase (45-117) U/L Total Creatine Kinase (26-192) U/L Total Protein (6.4-8.2) gm/dl Albumin 2.7 L (3.4-5.0) gm/dl Globulin (2.5-4.0) gm/dl Albumin/Globulin Ratio (0.9-2) TSH (0.300-4.500) uIu/ml Free T4 (0.8-1.6) ng/dl Urine Color Urine Appearance (Clear) Urine pH (4.5-7.5) Ur Specific [place] (1.000-1.030) Urine Protein (Negative) Urine Glucose (UA) (Negative) Urine Ketones (Negative) Urine Blood (Negative) Urine Nitrite (Negative) Urine Bilirubin (Negative) Urine Urobilinogen (Negative) Ur Leukocyte Esterase (Negative) Urine WBC (Auto) (0-5) /hpf Urine RBC (Auto) (0-4) /hpf U Hyaline Cast (Auto) (0-5) /lpf U Epithel Cells (Auto) (0-5) /lpf Urine Bacteria (Auto) (Negative) Blood Type Antibody Screen 03/25/19 03/25/19 03/25/19 Range/Units 05:39 03:57 03:57 WBC 9.96 (4.8-10.8) K/uL RBC 2.87 L (4.2-5.4) M/uL Hgb 8.2 L (12.0-16.0) g/dL Hct 25.3 L (37-47) % MCV 88.2 (80-100) fL MCH 28.6 (25-34) pg MCHC 32.4 (32-36) g/dL RDW Std Deviation 48.1 H (36.4-46.3) fL RDW Coeff of Neal 14.7 H (11.5-14.5) % Plt Count 238 (130-400) K/uL MPV 9.1 (7.4-10.4) fL Immature Gran % (Auto) 0.2 % Neut % (Auto) 73.6 % Lymph % (Auto) 15.5 % [place] % (Auto) 10.4 % Eos % (Auto) 0.1 % Baso % (Auto) 0.2 % Immature Gran # (Auto) 0.02 (0.00-0.02) K/uL Neut # (Auto) 7.33 H (1.4-6.5) K/uL Lymph # (Auto) 1.54 (1.2-3.4) K/uL Pike # (Auto) 1.04 H (0.11-0.59) K/uL Eos # (Auto) 0.01 (0-0.5) K/uL Baso # (Auto) 0.02 (0-0.2) K/uL PT (9.0-12.0) Seconds INR (0.9-1.1) Sodium 142 (136-145) mmol/L Potassium 5.2 H D (3.5-5.1) mmol/L Chloride 111 H (98-107) mmol/L Carbon Dioxide 24 (21-32) mmol/L Anion Gap 7.0 (3-11) BUN 19 H (7-18) mg/dl Creatinine 0.82 (0.6-1.2) mg/dl Est Cr Clr Drug Dosing 62.5 ml/min Est GFR ( Amer) 84.6 Est GFR (Non-Af Amer) 73.0 BUN/Creatinine Ratio 23.0 H (10-20) Glucose 189 H (70-99) mg/dl POC Glucose 180 H (70-99) Calcium 7.5 L (8.5-10.1) mg/dl Total Bilirubin (0.2-1) mg/dl AST (15-37) U/L ALT (12-78) U/L Alkaline Phosphatase (45-117) U/L Total Creatine Kinase 389 H (26-192) U/L Total Protein (6.4-8.2) gm/dl Albumin (3.4-5.0) gm/dl Globulin (2.5-4.0) gm/dl Albumin/Globulin Ratio (0.9-2) TSH (0.300-4.500) uIu/ml Free T4 (0.8-1.6) ng/dl Urine Color Urine Appearance (Clear) Urine pH (4.5-7.5) Ur Specific [place] (1.000-1.030) Urine Protein (Negative) Urine Glucose (UA) (Negative) Urine Ketones (Negative) Urine Blood (Negative) Urine Nitrite (Negative) Urine Bilirubin (Negative) Urine Urobilinogen (Negative) Ur Leukocyte Esterase (Negative) Urine WBC (Auto) (0-5) /hpf Urine RBC (Auto) (0-4) /hpf U Hyaline Cast (Auto) (0-5) /lpf U Epithel Cells (Auto) (0-5) /lpf Urine Bacteria (Auto) (Negative) Blood Type Antibody Screen 03/25/19 03/25/19 03/25/19 Range/Units 02:48 01:17 01:15 WBC (4.8-10.8) K/uL RBC (4.2-5.4) M/uL Hgb (12.0-16.0) g/dL Hct (37-47) % MCV (80-100) fL MCH (25-34) pg MCHC (32-36) g/dL RDW Std Deviation (36.4-46.3) fL RDW Coeff of Neal (11.5-14.5) % Plt Count (130-400) K/uL MPV (7.4-10.4) fL Immature Gran % (Auto) % Neut % (Auto) % Lymph % (Auto) % [place] % (Auto) % Eos % (Auto) % Baso % (Auto) % Immature Gran # (Auto) (0.00-0.02) K/uL Neut # (Auto) (1.4-6.5) K/uL Lymph # (Auto) (1.2-3.4) K/uL P[place] # (Auto) (0.11-0.59) K/uL Eos # (Auto) (0-0.5) K/uL Baso # (Auto) (0-0.2) K/uL PT (9.0-12.0) Seconds INR (0.9-1.1) Sodium (136-145) mmol/L Potassium (3.5-5.1) mmol/L Chloride (98-107) mmol/L Carbon Dioxide (21-32) mmol/L Anion Gap (3-11) BUN (7-18) mg/dl Creatinine (0.6-1.2) mg/dl Est Cr Clr Drug Dosing ml/min Est GFR ( Amer) Est GFR (Non-Af Amer) BUN/Creatinine Ratio (10-20) Glucose (70-99) mg/dl POC Glucose 217 H 343 H* 346 H* (70-99) Calcium (8.5-10.1) mg/dl Total Bilirubin (0.2-1) mg/dl AST (15-37) U/L ALT (12-78) U/L Alkaline Phosphatase (45-117) U/L Total Creatine Kinase (26-192) U/L Total Protein (6.4-8.2) gm/dl Albumin (3.4-5.0) gm/dl Globulin (2.5-4.0) gm/dl Albumin/Globulin Ratio (0.9-2) TSH (0.300-4.500) uIu/ml Free T4 (0.8-1.6) ng/dl Urine Color Urine Appearance (Clear) Urine pH (4.5-7.5) Ur Specific [place] (1.000-1.030) Urine Protein (Negative) Urine Glucose (UA) (Negative) Urine Ketones (Negative) Urine Blood (Negative) Urine Nitrite (Negative) Urine Bilirubin (Negative) Urine Urobilinogen (Negative) Ur Leukocyte Esterase (Negative) Urine WBC (Auto) (0-5) /hpf Urine RBC (Auto) (0-4) /hpf U Hyaline Cast (Auto) (0-5) /lpf U Epithel Cells (Auto) (0-5) /lpf Urine Bacteria (Auto) (Negative) Blood Type Antibody Screen 03/25/19 03/25/19 03/24/19 Range/Units 00:21 00:11 23:28 WBC (4.8-10.8) K/uL RBC (4.2-5.4) M/uL Hgb (12.0-16.0) g/dL Hct (37-47) % MCV (80-100) fL MCH (25-34) pg MCHC (32-36) g/dL RDW Std Deviation (36.4-46.3) fL RDW Coeff of Neal (11.5-14.5) % Plt Count (130-400) K/uL MPV (7.4-10.4) fL Immature Gran % (Auto) % Neut % (Auto) % Lymph % (Auto) % [place] % (Auto) % Eos % (Auto) % Baso % (Auto) % Immature Gran # (Auto) (0.00-0.02) K/uL Neut # (Auto) (1.4-6.5) K/uL Lymph # (Auto) (1.2-3.4) K/uL Pike # (Auto) (0.11-0.59) K/uL Eos # (Auto) (0-0.5) K/uL Baso # (Auto) (0-0.2) K/uL PT (9.0-12.0) Seconds INR (0.9-1.1) Sodium (136-145) mmol/L Potassium 6.3 H* (3.5-5.1) mmol/L Chloride (98-107) mmol/L Carbon Dioxide (21-32) mmol/L Anion Gap (3-11) BUN (7-18) mg/dl Creatinine (0.6-1.2) mg/dl Est Cr Clr Drug Dosing ml/min Est GFR ( Amer) Est GFR (Non-Af Amer) BUN/Creatinine Ratio (10-20) Glucose (70-99) mg/dl POC Glucose 243 H (70-99) Calcium (8.5-10.1) mg/dl Total Bilirubin (0.2-1) mg/dl AST (15-37) U/L ALT (12-78) U/L Alkaline Phosphatase (45-117) U/L Total Creatine Kinase 287 H (26-192) U/L Total Protein (6.4-8.2) gm/dl Albumin (3.4-5.0) gm/dl Globulin (2.5-4.0) gm/dl Albumin/Globulin Ratio (0.9-2) TSH (0.300-4.500) uIu/ml Free T4 (0.8-1.6) ng/dl Urine Color Yellow Urine Appearance Clear (Clear) Urine pH 5.0 (4.5-7.5) Ur Specific [place] 1.018 (1.000-1.030) Urine Protein Negative (Negative) Urine Glucose (UA) Negative (Negative) Urine Ketones Negative (Negative) Urine Blood Negative (Negative) Urine Nitrite Negative (Negative) Urine Bilirubin Negative (Negative) Urine Urobilinogen Negative (Negative) Ur Leukocyte Esterase Trace H (Negative) Urine WBC (Auto) 1-5 (0-5) /hpf Urine RBC (Auto) 0-4 (0-4) /hpf U Hyaline Cast (Auto) 1-5 (0-5) /lpf U Epithel Cells (Auto) 20-30 H (0-5) /lpf Urine Bacteria (Auto) 4+ H (Negative) Blood Type Antibody Screen 03/24/19 03/24/19 03/24/19 Range/Units 22:30 17:33 17:33 WBC (4.8-10.8) K/uL RBC (4.2-5.4) M/uL Hgb (12.0-16.0) g/dL Hct (37-47) % MCV (80-100) fL MCH (25-34) pg MCHC (32-36) g/dL RDW Std Deviation (36.4-46.3) fL RDW Coeff of Neal (11.5-14.5) % Plt Count (130-400) K/uL MPV (7.4-10.4) fL Immature Gran % (Auto) % Neut % (Auto) % Lymph % (Auto) % [place] % (Auto) % Eos % (Auto) % Baso % (Auto) % Immature Gran # (Auto) (0.00-0.02) K/uL Neut # (Auto) (1.4-6.5) K/uL Lymph # (Auto) (1.2-3.4) K/uL [place] # (Auto) (0.11-0.59) K/uL Eos # (Auto) (0-0.5) K/uL Baso # (Auto) (0-0.2) K/uL PT 10.8 (9.0-12.0) Seconds INR 1.1 (0.9-1.1) Sodium (136-145) mmol/L Potassium (3.5-5.1) mmol/L Chloride (98-107) mmol/L Carbon Dioxide (21-32) mmol/L Anion Gap (3-11) BUN (7-18) mg/dl Creatinine (0.6-1.2) mg/dl Est Cr Clr Drug Dosing ml/min Est GFR ( Amer) Est GFR (Non-Af Amer) BUN/Creatinine Ratio (10-20) Glucose (70-99) mg/dl POC Glucose 177 H (70-99) Calcium (8.5-10.1) mg/dl Total Bilirubin (0.2-1) mg/dl AST (15-37) U/L ALT (12-78) U/L Alkaline Phosphatase (45-117) U/L Total Creatine Kinase (26-192) U/L Total Protein (6.4-8.2) gm/dl Albumin (3.4-5.0) gm/dl Globulin (2.5-4.0) gm/dl Albumin/Globulin Ratio (0.9-2) TSH (0.300-4.500) uIu/ml Free T4 (0.8-1.6) ng/dl Urine Color Urine Appearance (Clear) Urine pH (4.5-7.5) Ur Specific [place] (1.000-1.030) Urine Protein (Negative) Urine Glucose (UA) (Negative) Urine Ketones (Negative) Urine Blood (Negative) Urine Nitrite (Negative) Urine Bilirubin (Negative) Urine Urobilinogen (Negative) Ur Leukocyte Esterase (Negative) Urine WBC (Auto) (0-5) /hpf Urine RBC (Auto) (0-4) /hpf U Hyaline Cast (Auto) (0-5) /lpf U Epithel Cells (Auto) (0-5) /lpf Urine Bacteria (Auto) (Negative) Blood Type A Positive Antibody Screen NEGATIVE 03/24/19 03/24/19 Range/Units 17:33 17:33 WBC 9.37 (4.8-10.8) K/uL RBC 3.56 L (4.2-5.4) M/uL Hgb 10.0 L (12.0-16.0) g/dL Hct 31.9 L (37-47) % MCV 89.6 (80-100) fL MCH 28.1 (25-34) pg MCHC 31.3 L (32-36) g/dL RDW Std Deviation 48.6 H (36.4-46.3) fL RDW Coeff of Neal 14.8 H (11.5-14.5) % Plt Count 266 (130-400) K/uL MPV 9.7 (7.4-10.4) fL Immature Gran % (Auto) 0.2 % Neut % (Auto) 70.2 % Lymph % (Auto) 18.6 % [place] % (Auto) 7.3 % Eos % (Auto) 3.5 % Baso % (Auto) 0.2 % Immature Gran # (Auto) 0.02 (0.00-0.02) K/uL Neut # (Auto) 6.58 H (1.4-6.5) K/uL Lymph # (Auto) 1.74 (1.2-3.4) K/uL Pike # (Auto) 0.68 H (0.11-0.59) K/uL Eos # (Auto) 0.33 (0-0.5) K/uL Baso # (Auto) 0.02 (0-0.2) K/uL PT (9.0-12.0) Seconds INR (0.9-1.1) Sodium 140 (136-145) mmol/L Potassium 5.6 H (3.5-5.1) mmol/L Chloride 107 (98-107) mmol/L Carbon Dioxide 23 (21-32) mmol/L Anion Gap 10.0 (3-11) BUN 18 (7-18) mg/dl Creatinine 0.93 (0.6-1.2) mg/dl Est Cr Clr Drug Dosing 55.1 ml/min Est GFR ( Amer) 72.7 Est GFR (Non-Af Amer) 62.7 BUN/Creatinine Ratio 19.5 (10-20) Glucose 190 H (70-99) mg/dl POC Glucose (70-99) Calcium 8.7 (8.5-10.1) mg/dl Total Bilirubin 0.3 (0.2-1) mg/dl AST 48 H (15-37) U/L ALT 77 (12-78) U/L Alkaline Phosphatase 77 (45-117) U/L Total Creatine Kinase (26-192) U/L Total Protein 6.5 (6.4-8.2) gm/dl Albumin 3.4 (3.4-5.0) gm/dl Globulin 3.1 (2.5-4.0) gm/dl Albumin/Globulin Ratio 1.1 (0.9-2) TSH 6.360 H (0.300-4.500) uIu/ml Free T4 1.15 (0.8-1.6) ng/dl Urine Color Urine Appearance (Clear) Urine pH (4.5-7.5) Ur Specific [place] (1.000-1.030) Urine Protein (Negative) Urine Glucose (UA) (Negative) Urine Ketones (Negative) Urine Blood (Negative) Urine Nitrite (Negative) Urine Bilirubin (Negative) Urine Urobilinogen (Negative) Ur Leukocyte Esterase (Negative) Urine WBC (Auto) (0-5) /hpf Urine RBC (Auto) (0-4) /hpf U Hyaline Cast (Auto) (0-5) /lpf U Epithel Cells (Auto) (0-5) /lpf Urine Bacteria (Auto) (Negative) Blood Type Antibody Screen
[2019-03-25] MEDS ORDERED: CEFAZOLIN 2000MG 2,000 MG/15 ML SYR IV SCH (10:13)
[2019-03-25] MEDS ORDERED: CEFAZOLIN 2000MG 2,000 MG/15 ML SYR IV ONE (10:13)
[2019-03-25] MEDS ORDERED: BUPIVACAINE 0.5 % 5 MG/1 ML MPF 30ML VIAL ONE (14:55)
[2019-03-25] MEDS ORDERED: LIDOCAINE/EPINEPHRINE 1% 20 ML VIAL ONE (14:55)
--- NOTE | 2019-03-25 15:33 | Anesthesiology Consultation ---
Date of Service March 25, 2019 Assessment & Plan (1) Encounter for pre-operative examination: Chart Review Chart Review: Acceptable Risk for Surgery and Patient NOT seen in Pre Admission Testing Consults Requested none ASA [id number] Proposed Anesthesia Anesthesia Type: General Risk / Benefits Reviewed With: PT / POA / Parent / Guardian, Accepts Plan and Informed Consent Obtained History Surgery Operation Date: 03/25/19 07:05 Proposed Procedures p Right Hip Open Reduction Internal Fixation Subtrochanteric Fracture - Harrison Lit Ferris MD Height/Weight Height: 5 ft 2 in Weight: 77 kg Allergies Allergy/AdvReac Type Severity Reaction Status Date / Time aspirin Allergy Unknown CAN NOT Verified 03/24/19 17:37 TAKE DUE TO BLEEDING IN EYES lisinopril AdvReac Mild hyperkalemi Verified 03/25/19 03:26 a Medications Home Medications Medication Instructions Recorded Confirmed Last Taken diazepam 5 mg PO HS PRN 03/24/19 03/24/19 Unknown glimepiride 0 mg PO DAILY 03/24/19 03/24/19 Unknown levothyroxine 0 mcg PO DAILYBB 03/24/19 03/24/19 Unknown lisinopril 5 mg PO DAILY 03/24/19 03/24/19 Unknown metformin 1,000 mg PO AMPM 03/24/19 03/24/19 Unknown Active Medications Generic Name Dose Route Start Last Admin Trade Name Freq PRN Reason Stop Dose Admin Amlodipine Besylate 2.5 mg 03/24/19 21:43 03/24/19 22:28 Norvasc PO 04/23/19 21:42 2.5 mg HS BRYCE Administration Sodium Chloride 1,000 mls @ 200 mls/hr 03/25/19 05:15 03/25/19 11:13 1/2 Nss IV 03/26/19 05:14 200 mls/hr .Q5H BRYCE Administration Insulin Aspart 0 units 03/25/19 02:30 03/25/19 11:49 Novolog Flexpen SC 04/24/19 02:29 Not Given Q6 BRYCE Morphine Sulfate 2 mg 03/24/19 21:43 03/25/19 13:16 Morphine Sulfate IV 04/07/19 21:42 2 mg Q2H PRN Administration MODERATE Pain (Scale 4,5,6) Oxycodone HCl 5 mg 03/24/19 21:43 03/25/19 09:35 Roxicodone Immediate Rel PO 04/07/19 21:42 5 mg Q4H PRN Administration MODERATE Pain (Scale 4,5,6) Senna/Docusate Sodium 2 tab 03/24/19 21:43 03/24/19 22:33 Senokot S PO 04/23/19 21:42 2 tab HS BRYCE Administration NPO Date Last Intake of Fluids: 03/25/19 Time Last Intake of Fluids: 09:30 Last Intake of Fluids Comment: Sip of water with pill Date Last Intake of Solids: 03/24/19 Time Last Intake of Solids: 22:00 Past Medical History Medical History Transverse myelitis Hypertension Diabetes mellitus Exercise / Class Metabolic Activity IV < 2 Limit ADL/Bedbound (Can ambulate short distance with canes) Past Surgical History Surgical History H/O gastric bypass Past Anesthesia History No Hx of Anesthesia Complications History of PONV No Hx of PONV and No Hx of Motion Sickness Social History Smoking Status: Never smoker Do You Dip or Chew Tobacco: No Hx Alcohol Use: Yes alcohol intake frequency: holidays/special occasions only Hx Substance Use: No substance use type: does not use Review of Systems can move toes slightly, cannot feel legs denies N/V denies GERD denies CP and sob, but limited METs due to transverse myelitis Physical Exam Vital Signs Last Vital Signs Temp 37.0 C 03/25/19 14:50 Pulse 109 H 03/25/19 14:50 Resp 18 03/25/19 14:50 BP 129/73 03/25/19 14:50 Pulse Ox 92 03/25/19 14:50 Constitutional + obese ENMT Mouth: no TMJ abnormality and oral opening not small Thyromental Distance: > or= 3.5 Finger Breadths Mallampati Class: II Neck normal visual inspection; neck extension not limited Respiratory normal respiratory effort Auscultation: lungs clear to auscultation bilaterally Cardiovascular Rate/Rhythm: regular rate and regular rhythm Heart Sounds: no murmur Neurologic moves all extremities Psychiatric Orientation: alert and oriented x 3 Testing Laboratory Results 03/25/19 03:57 03/25/19 07:47 PT 10.8 Seconds (9.0-12.0) 03/24/19 17:33 INR 1.1 (0.9-1.1) 03/24/19 17:33 Urine Color Yellow 03/25/19 00:21 Urine Appearance Clear (Clear) 03/25/19 00:21 Urine pH 5.0 (4.5-7.5) 03/25/19 00:21 Ur Specific [place] 1.018 (1.000-1.030) 03/25/19 00:21 Urine Protein Negative (Negative) 03/25/19 00:21 Urine Glucose (UA) Negative (Negative) 03/25/19 00:21 Urine Ketones Negative (Negative) 03/25/19 00: Urine Nitrite Negative (Negative) 03/25/19 00:21 Ur Leukocyte Esterase Trace (Negative) H 03/25/19 00:21 Urine WBC (Auto) 1-5 /hpf (0-5) 03/25/19 00:21 Urine RBC (Auto) 0-4 /hpf (0-4) 03/25/19 00:21 U Hyaline Cast (Auto) 1-5 /lpf (0-5) 03/25/19 00:21 U Epithel Cells (Auto) 20-30 /lpf (0-5) H 03/25/19 00:21 Urine Bacteria (Auto) 4+ (Negative) H 03/25/19 00:21 Blood Type A Positive 03/24/19 17:33 Antibody Screen NEGATIVE 03/24/19 17:33 03/25/19 03/25/19 03/25/19 11:45 07:34 05:39 POC Glucose 106 H 129 H 180 H Electrocardiogram Date: 03/25/19 Findings: + ST @ (101) Low voltage QRS Chest X-Ray Date: 03/24/19 Findings: + NAD
[2019-03-25] MEDS ORDERED: SODIUM CHLORIDE 0.9% 250 ML IV PRN (15:58)
[2019-03-25] MEDS ORDERED: NEOSTIGMINE METHYLSULFATE 5 MG/5 ML SYR ONE (16:19)
[2019-03-25] MEDS ORDERED: GLYCOPYRROLATE 0.2 MG/ML VIAL ONE (16:19)
[2019-03-25] MEDS ORDERED: ONDANSETRON INJ 2 MG/ML 2 ML VIAL ONE (16:19)
[2019-03-25] MEDS ORDERED: DEXAMETHASONE SOD INJ 4 MG/ML VIAL ONE (16:19)
[2019-03-25] MEDS ORDERED: PROPOFOL IV EMULSION 10 MG/ML 20 ML VIAL IV ONE (16:19)
[2019-03-25] MEDS ORDERED: LIDOCAINE HCL 2% 2 ML VIAL/AMP(20MG/ML) INFIL ONE (16:19)
[2019-03-25] MEDS ORDERED: fentaNYL citrate 100 MCG/2 ML VIAL ONE ×2 (16:19→17:43)
[2019-03-25] MEDS ORDERED: MIDAZOLAM HCL 1 MG/ML 2ML VIAL ONE (16:19)
[2019-03-25] MEDS ORDERED: ALBUMIN HUMAN 5% 12.5 GM/250 ML VIAL IV ONE ×2 (16:33→22:24)
--- NOTE | 2019-03-25 17:12 | Hospitalist Progress Note ---
Date of Service March 25, 2019 Assessment & Plan (1) Closed right hip fracture: Secondary to mechanical fall -- no medical contraindication for hip surgery -- ff up CPK Hyperkalemia, possibly from home ACEI, mild rhabdomyolysis (Recurrent hyperkalemia on review of outpatient chemistries from last year) -- resolved -- monitor -- d/c Lisinopril DM 2 on oral medications, well-controlled as of recent outpatient hemoglobin A1c of 6.5 last February 2019 -- ISS hypertension, slightly elevated secondary discomfort -- improved, will monitor -- Lisinopril changed to Amlodipine Hypothyroidism, TSH noted to be elevated on last month's outpatient blood draw (4.59) hx transverse myelitis, deficits at baseline left renal mass, likely benign and stable measurement as of recent outpatient [facility] [place] Urology visit March 2018 Acute on chronic anemia, hemoglobin drop from baseline (low iron indices on recent outpatient anemia blood work possibly related to gastric bypass surgery; no prior colonoscopies, no history of overt GI/ blood loss as per patient account) past tobacco abuse. -- will check anemia panel -- no signs of overt GI bleed DVT prophylaxis. SCDs for now Recommend pharmacologic anticoagulation once bleeding risk is deemed to be minimal and negligible pending Orthopedics re-eval. Full code Disposition will need PT/OT to determine requirement for Inpatient Rehab Subjective ff up for right hip fracture seen resting in bed, watching TV, comfortable states she feels fine except for right hip spasms denies chest pain, dyspnea, palpitations, dizziness no other symptoms Review of Systems 2 Review of Systems: All systems reviewed & are unremarkable except as noted in HPI & below Physical Exam Physical Exam: General- oriented x 3, not in distress, speaks in sentences with no effort or accessory muscle use Head- atraumatic Eyes- PERRL, EOMI, anicteric ENT- oropharynx clear Neck- supple, no JVD, no adenopathy, no thyromegaly; carotids +2/2, no bruits appreciated Lungs- clear to auscultation bilaterally, no rales/wheezes Heart- normal rate, regular rhythm; no murmur, no gallop, no rub appreciated Abdomen- normal bowel sounds, nondistended, soft, nontender, no masses or hepatosplenomegaly Extremities- (+) right lower extremity externally rotated (+) edema right hip area- no hematoma noted no pretibial edema, no calf tenderness; peripheral pulses intact Neuro- alert, oriented x 3; CN 2-12 grossly intact; motor 5/5 bilaterally;sensation 100% on all extremities; no other gross focal neurologic deficits Skin- warm & dry Results & Data Vital Signs (Past 12 Hours) Vital Signs Temp Pulse Pulse Resp BP BP Pulse Ox 03/25/19 16:18 109 H 18 118/69 93 03/25/19 16:16 105 H 03/25/19 14:50 37.0 C 109 H 18 129/73 92 03/25/19 11:39 36.8 C 100 H 18 112/63 90 03/25/19 08:15 106 H 03/25/19 07:19 36.9 C 103 H 18 113/69 96 Laboratory Results Laboratory Results - last 24 hr 03/24/19 03/24/19 03/24/19 17:33 17:33 17:33 WBC 9.37 RBC 3.56 L Hgb 10.0 L Hct 31.9 L MCV 89.6 MCH 28.1 MCHC 31.3 L RDW Std Deviation 48.6 H RDW Coeff of Neal 14.8 H Plt Count 266 MPV 9.7 Immature Gran % (Auto) 0.2 Neut % (Auto) 70.2 Lymph % (Auto) 18.6 [place] % (Auto) 7.3 Eos % (Auto) 3.5 Baso % (Auto) 0.2 Immature Gran # (Auto) 0.02 Neut # (Auto) 6.58 H Lymph # (Auto) 1.74 [place] # (Auto) 0.68 H Eos # (Auto) 0.33 Baso # (Auto) 0.02 PT 10.8 INR 1.1 Sodium 140 Potassium 5.6 H Chloride 107 Carbon Dioxide 23 Anion Gap 10.0 BUN 18 Creatinine 0.93 Est Cr Clr Drug Dosing 55.1 Est GFR ( Amer) 72.7 Est GFR (Non-Af Amer) 62.7 BUN/Creatinine Ratio 19.5 Glucose 190 H POC Glucose Calcium 8.7 Total Bilirubin 0.3 AST 48 H ALT 77 Alkaline Phosphatase 77 Total Creatine Kinase Total Protein 6.5 Albumin 3.4 Globulin 3.1 Albumin/Globulin Ratio 1.1 TSH 6.360 H Free T4 1.15 Urine Color Urine Appearance Urine pH Ur Specific [place] Urine Protein Urine Glucose (UA) Urine Ketones Urine Blood Urine Nitrite Urine Bilirubin Urine Urobilinogen Ur Leukocyte Esterase Urine WBC (Auto) Urine RBC (Auto) U Hyaline Cast (Auto) U Epithel Cells (Auto) Urine Bacteria (Auto) Blood Type Blood Type Recheck Antibody Screen Crossmatch 03/24/19 03/24/19 03/24/19 17:33 22:30 23:28 WBC RBC Hgb Hct MCV MCH MCHC RDW Std Deviation RDW Coeff of Neal Plt Count MPV Immature Gran % (Auto) Neut % (Auto) Lymph % (Auto) [place] % (Auto) Eos % (Auto) Baso % (Auto) Immature Gran # (Auto) Neut # (Auto) Lymph # (Auto) [place] # (Auto) Eos # (Auto) Baso # (Auto) PT INR Sodium Potassium 6.3 H* Chloride Carbon Dioxide Anion Gap BUN Creatinine Est Cr Clr Drug Dosing Est GFR ( Amer) Est GFR (Non-Af Amer) BUN/Creatinine Ratio Glucose POC Glucose 177 H Calcium Total Bilirubin AST ALT Alkaline Phosphatase Total Creatine Kinase 287 H Total Protein Albumin Globulin Albumin/Globulin Ratio TSH Free T4 Urine Color Urine Appearance Urine pH Ur Specific [place] Urine Protein Urine Glucose (UA) Urine Ketones Urine Blood Urine Nitrite Urine Bilirubin Urine Urobilinogen Ur Leukocyte Esterase Urine WBC (Auto) Urine RBC (Auto) U Hyaline Cast (Auto) U Epithel Cells (Auto) Urine Bacteria (Auto) Blood Type A Positive Blood Type Recheck Antibody Screen NEGATIVE Crossmatch See Detail 03/25/19 03/25/19 03/25/19 00:11 00:21 01:15 WBC RBC Hgb Hct MCV MCH MCHC RDW Std Deviation RDW Coeff of Neal Plt Count MPV Immature Gran % (Auto) Neut % (Auto) Lymph % (Auto) [place] % (Auto) Eos % (Auto) Baso % (Auto) Immature Gran # (Auto) Neut # (Auto) Lymph # (Auto) [place] # (Auto) Eos # (Auto) Baso # (Auto) PT INR Sodium Potassium Chloride Carbon Dioxide Anion Gap BUN Creatinine Est Cr Clr Drug Dosing Est GFR ( Amer) Est GFR (Non-Af Amer) BUN/Creatinine Ratio Glucose POC Glucose 243 H 346 H* Calcium Total Bilirubin AST ALT Alkaline Phosphatase Total Creatine Kinase Total Protein Albumin Globulin Albumin/Globulin Ratio TSH Free T4 Urine Color Yellow Urine Appearance Clear Urine pH 5.0 Ur Specific [place] 1.018 Urine Protein Negative Urine Glucose (UA) Negative Urine Ketones Negative Urine Blood Negative Urine Nitrite Negative Urine Bilirubin Negative Urine Urobilinogen Negative Ur Leukocyte Esterase Trace H Urine WBC (Auto) 1-5 Urine RBC (Auto) 0-4 U Hyaline Cast (Auto) 1-5 U Epithel Cells (Auto) 20-30 H Urine Bacteria (Auto) 4+ H Blood Type Blood Type Recheck Antibody Screen Crossmatch 03/25/19 03/25/19 03/25/19 01:17 02:48 03:57 WBC 9.96 RBC 2.87 L Hgb 8.2 L Hct 25.3 L MCV 88.2 MCH 28.6 MCHC 32.4 RDW Std Deviation 48.1 H RDW Coeff of Neal 14.7 H Plt Count 238 MPV 9.1 Immature Gran % (Auto) 0.2 Neut % (Auto) 73.6 Lymph % (Auto) 15.5 [place] % (Auto) 10.4 Eos % (Auto) 0.1 Baso % (Auto) 0.2 Immature Gran # (Auto) 0.02 Neut # (Auto) 7.33 H Lymph # (Auto) 1.54 [place] # (Auto) 1.04 H Eos # (Auto) 0.01 Baso # (Auto) 0.02 PT INR Sodium Potassium Chloride Carbon Dioxide Anion Gap BUN Creatinine Est Cr Clr Drug Dosing Est GFR ( Amer) Est GFR (Non-Af Amer) BUN/Creatinine Ratio Glucose POC Glucose 343 H* 217 H Calcium Total Bilirubin AST ALT Alkaline Phosphatase Total Creatine Kinase Total Protein Albumin Globulin Albumin/Globulin Ratio TSH Free T4 Urine Color Urine Appearance Urine pH Ur Specific [place] Urine Protein Urine Glucose (UA) Urine Ketones Urine Blood Urine Nitrite Urine Bilirubin Urine Urobilinogen Ur Leukocyte Esterase Urine WBC (Auto) Urine RBC (Auto) U Hyaline Cast (Auto) U Epithel Cells (Auto) Urine Bacteria (Auto) Blood Type Blood Type Recheck Antibody Screen Crossmatch 03/25/19 03/25/19 03/25/19 03:57 03:57 05:39 WBC RBC Hgb Hct MCV MCH MCHC RDW Std Deviation RDW Coeff of Neal Plt Count MPV Immature Gran % (Auto) Neut % (Auto) Lymph % (Auto) [place] % (Auto) Eos % (Auto) Baso % (Auto) Immature Gran # (Auto) Neut # (Auto) Lymph # (Auto) [place] # (Auto) Eos # (Auto) Baso # (Auto) PT INR Sodium 142 Potassium 5.2 H D Chloride 111 H Carbon Dioxide 24 Anion Gap 7.0 BUN 19 H Creatinine 0.82 Est Cr Clr Drug Dosing 62.5 Est GFR ( Amer) 84.6 Est GFR (Non-Af Amer) 73.0 BUN/Creatinine Ratio 23.0 H Glucose 189 H POC Glucose 180 H Calcium 7.5 L Total Bilirubin AST ALT Alkaline Phosphatase Total Creatine Kinase 389 H Total Protein Albumin Globulin Albumin/Globulin Ratio TSH Free T4 Urine Color Urine Appearance Urine pH Ur Specific [place] Urine Protein Urine Glucose (UA) Urine Ketones Urine Blood Urine Nitrite Urine Bilirubin Urine Urobilinogen Ur Leukocyte Esterase Urine WBC (Auto) Urine RBC (Auto) U Hyaline Cast (Auto) U Epithel Cells (Auto) Urine Bacteria (Auto) Blood Type Blood Type Recheck A Positive Antibody Screen Crossmatch 03/25/19 03/25/19 03/25/19 06:04 07:34 07:47 WBC RBC Hgb Hct MCV MCH MCHC RDW Std Deviation RDW Coeff of Neal Plt Count MPV Immature Gran % (Auto) Neut % (Auto) Lymph % (Auto) [place] % (Auto) Eos % (Auto) Baso % (Auto) Immature Gran # (Auto) Neut # (Auto) Lymph # (Auto) [place] # (Auto) Eos # (Auto) Baso # (Auto) PT INR Sodium Potassium 4.4 D Chloride Carbon Dioxide Anion Gap BUN Creatinine Est Cr Clr Drug Dosing Est GFR ( Amer) Est GFR (Non-Af Amer) BUN/Creatinine Ratio Glucose POC Glucose 129 H Calcium Total Bilirubin AST ALT Alkaline Phosphatase Total Creatine Kinase Total Protein Albumin 2.7 L Globulin Albumin/Globulin Ratio TSH Free T4 Urine Color Urine Appearance Urine pH Ur Specific [place] Urine Protein Urine Glucose (UA) Urine Ketones Urine Blood Urine Nitrite Urine Bilirubin Urine Urobilinogen Ur Leukocyte Esterase Urine WBC (Auto) Urine RBC (Auto) U Hyaline Cast (Auto) U Epithel Cells (Auto) Urine Bacteria (Auto) Blood Type Blood Type Recheck Antibody Screen Crossmatch 03/25/19 03/25/19 11:45 16:02 WBC RBC Hgb Hct MCV MCH MCHC RDW Std Deviation RDW Coeff of Neal Plt Count MPV Immature Gran % (Auto) Neut % (Auto) Lymph % (Auto) [place] % (Auto) Eos % (Auto) Baso % (Auto) Immature Gran # (Auto) Neut # (Auto) Lymph # (Auto) [place] # (Auto) Eos # (Auto) Baso # (Auto) PT INR Sodium Potassium Chloride Carbon Dioxide Anion Gap BUN Creatinine Est Cr Clr Drug Dosing Est GFR ( Amer) Est GFR (Non-Af Amer) BUN/Creatinine Ratio Glucose POC Glucose 106 H 102 H Calcium Total Bilirubin AST ALT Alkaline Phosphatase Total Creatine Kinase Total Protein Albumin Globulin Albumin/Globulin Ratio TSH Free T4 Urine Color Urine Appearance Urine pH Ur Specific [place] Urine Protein Urine Glucose (UA) Urine Ketones Urine Blood Urine Nitrite Urine Bilirubin Urine Urobilinogen Ur Leukocyte Esterase Urine WBC (Auto) Urine RBC (Auto) U Hyaline Cast (Auto) U Epithel Cells (Auto) Urine Bacteria (Auto) Blood Type Blood Type Recheck Antibody Screen Crossmatch
--- NOTE | 2019-03-25 20:22 | Post Operative Brief Note ---
Immediate Post Op Note v1 Date of Surgery March 25, 2019 Pre & Post Diagnosis Operation Date: 03/25/19 07:05 Pre-Op Diagnosis: Closed fracture of proximal end of femur. Post-Op Diagnosis: Closed fracture of proximal end of femur. I identified the patient and participated in the time-out.: Yes Procedure Operation Date: 03/25/19 07:05 Actual Procedures p Right Hip Open Reduction Internal Fixation Subtrochanteric Fracture(Right) - Harrison Ferris MD Surgeon Harrison Ferris MD [employer] Specialist Angela Loza MD & Chloé Church PA-C Estimated Blood Loss 200 Findings Consistent with Post-Op Diagnosis Fluids 2 units pRBC & 2000 cc Drains Sal Catheter Anesthesia Type General Complications none
[2019-03-25] MEDS ORDERED: ONDANSETRON INJ 2 MG/ML 2 ML VIAL IV PRN (20:23)
[2019-03-25] MEDS ORDERED: bisacodyL 10 MG SUPP PR PRN (20:23)
[2019-03-25] MEDS ORDERED: SOD PHOSPHATE/SOD BIPHOSPHATE ENEMA 132 ML BTL PR PRN (20:23)
[2019-03-25] MEDS ORDERED: NALOXONE HCL 0.4 MG/1 ML VIAL/CARP IV PRN (20:23)
[2019-03-25] MEDS ORDERED: OXYCODONE HCL IR 5 MG TAB (IMMEDIATE RELEASE) PO PRN (20:23)
--- NOTE | 2019-03-25 20:25 | Operative Report ---
Post Operative Report Pre & Post Diagnosis Operation Date: 03/25/19 07:05 Pre-Op Diagnosis: Closed fracture of proximal end of femur. Post-Op Diagnosis: Closed fracture of proximal end of femur. I identified the patient and participated in the time-out.: Yes Procedure Operation Date: 03/25/19 07:05 Actual Procedures p Right Hip Open Reduction Internal Fixation Subtrochanteric Fracture(Right) - Harrison Ferris MD Surgeon Harrison Ferris MD Detention Deputy Angela Loza MD & Chloé Church PA-C Estimated Blood Loss 200 Findings See Below Displaced Right subtrochanteric femur fracture, long spiral fracture, with int erposed muscle. Fluids 2 units pRBC & 2000 cc Specimens n/a Drains Sal Anesthesia Type General Complications none Indications The patient is a 68 year old female who sustained a right femur fracture from a ground-level fall. The patients treatment options of conservative versus surgical intervention were discussed. I recommended surgery, once the patient was medically cleared, to allow for decreased morbidity and mortality. The patient understands the risks of surgery, which include but are not limited to: bleeding, infection, re-operation, damage to nerves and arteries, continued pain, failure of the hardware, mal-union, non-union, DVT, and . The patient understands all of these instructions and explanations, all of their questions have been satisfactorily addressed. The patient has elected to proceed with surgery and the informed consent was signed. Description of Procedure IMPLANTS: 1. Synthes 11 mm x 130 Deg x 360 mm Troch Nail. 2. 11 x 85 mm Helical blade. 3. 5 x 40 & 46 mm Distal Locking screw. 4. 1.7 mm cable with crimp 3 (Synthes). PROCEDURE: The patient was taken to the Operating Room and placed in the lateral position on the radiolucent spine table after general anesthesia was administered. A multidisciplinary time-out was performed identifying my initials on the right lower limb as the correct and operative limb. Prior to the incision being made, 2 grams of intravenous Ancef was given. Fluoroscopy was brought in to ensure adequate x-rays images could be obtained. The right lower extremity was prepped in the standard fashion. The trochanter and the planned incisions were marked. The incisions were injected with a 50:50 mixture of 1% Lidocaine plain and 0.5% Bupivacaine with epinephrine for a total of 15 cc. The planned lateral incision centered over the palpable fracture site was carried down to the fascia. The fascia of the IT band was split in line with its fibers. The fracture was easily I then verified and palpated. The fibers of the vastus lateralis were split to expose the distal and proximal fragments. There was some comminution with small fragments that were loose and no longer contained any soft tissue attachments. These were removed. The muscle interposed within the fragments was removed. The hematoma was removed with a combination of rongeur, irrigation and suction. Using 2 large lion jaws and with traction and digital manipulation of the fragments, the fracture was reduced. Hemostasis of any bleeding perforators were obtained with electrocautery. Fluoroscopy was used to ensure near anatomic reduction. Then 3 Dull Miles cables were placed circumferentially around the long spiral fracture and tightened to 50 pounds with tensioning device in the standard fashion. The housing holding the cables together were crimped in the standard fashion. The cables were cut short. Next the planned incision proximal to the greater trochanter was made and carried down through the Tensor Fascia Nikky to expose the tip of the greater trochanter and the starting position. A starting guide wire was placed and the starting reamer was used to create the entry hole. The long guide wire was then placed across the fracture into the distal fragment down to the distal femoral physeal scar centrally in both the AP and lateral projections. The femural cannal was then sequentially reamed from an 10 up to a 12.5 mm reamer. A size 11 mm implant was selected. The implant was then inserted without difficulty. The Helical blade was placed through the lateral incision using the aiming guide in the standard fashion. The Helical blade was locked in place. The distal locking screws were placed with perfect redding technique through 2 separate small incisions. Final x-rays were obtained showing near anatomic alignment of the femoral shaft fracture. The wounds were copiously irrigated. The IT band was closed with 0 Vicryl. The deep subcutaneous tissue was closed with 2-0 Vicryl. The subcutaneous tissue was closed with 3-0 Vicryl. The skin was closed with ZipLine and shield. The incisions were covered with 4x4s, ABD, and foam tape. The patient was transfer to her hospital bed and taken to the PACU in stable condition. The sponge and needle counts were correct. Post-op Instructions: The patient was re-admitted to the hospitalist service. The patient will be WBAT. The patient will be seen by PT/OT. Her labs will be checked in the am. DVT prophylaxis will be with mechanical devices and then Lovenox will be started in the morning. I attest to the content of the Intraoperative Record and any orders documented therein. Any exceptions are noted below.
--- NOTE | 2019-03-25 20:25 | Fluoroscopy Report ---
FL hip RT 2-3V CLINICAL HISTORY: RT trochanteric nail COMPARISON STUDY: 03/24/2019 FLUOROSCOPY TIME: 114 seconds. NUMBER OF FLUOROSCOPIC IMAGES: 7 FINDINGS: Intraoperative fluoroscopic spot images reveal internal fixation of the proximal femoral fr acture with a trochanteric nail, intramedullary verena, and proximal cerclage wires. IMPRESSION: Internally fixated proximal femoral fracture. Electronically signed by: Dinh Pinto M.D. 03/25/2019 8:24 PM
[2019-03-25] MEDS ORDERED: SENNA 8.6 MG TAB PO SCH (21:00)
--- NOTE | 2019-03-25 21:47 | Anesthesiology Progress Note ---
Date of Service March 25, 2019 Anesthesia Post Procedure Vital Signs Vital Signs: Temp Pulse Pulse Pulse Resp BP BP 03/25/19 21:30 38.0 C H 101 H 15 131/68 03/25/19 21:20 38.0 C H 103 H 17 125/66 03/25/19 21:10 38.0 C H 104 H 18 127/63 03/25/19 21:00 37.4 C 99 H 16 121/53 L 03/25/19 20:50 37.4 C 103 H 15 130/65 03/25/19 20:40 37.4 C 103 H 17 133/67 03/25/19 20:29 37.4 C 106 H 16 97/53 L 03/25/19 16:18 109 H 18 118/69 03/25/19 16:16 105 H 03/25/19 14:50 37.0 C 109 H 18 129/73 03/25/19 11:39 36.8 C 100 H 18 112/63 03/25/19 08:15 106 H 03/25/19 07:19 36.9 C 103 H 18 113/69 03/25/19 04:15 36.8 C 103 H 16 112/60 03/25/19 02:11 100 H 03/24/19 23:00 37 C 102 H 18 113/72 03/24/19 22:38 107 H 20 105/65 03/24/19 22:08 106 H Pulse Ox 03/25/19 21:30 99 03/25/19 21:20 93 03/25/19 21:10 91 03/25/19 21:00 100 03/25/19 20:50 100 03/25/19 20:40 89 L 03/25/19 20:29 98 03/25/19 16:18 93 03/25/19 16:16 03/25/19 14:50 92 03/25/19 11:39 90 03/25/19 08:15 03/25/19 07:19 96 03/25/19 04:15 95 03/25/19 02:11 03/24/19 23:00 96 03/24/19 22:38 96 03/24/19 22:08 Pain Intensity Right Hip: Pain Intensity: 0 Transfer of Care Handoff Completed per policy Notes Mental Status: alert / awake / arousable and participated in evaluation Patient Amnestic to Procedure: Yes Nausea / Vomiting: adequately controlled Pain: adequately controlled Airway Patency, RR, SpO2: stable & adequate BP & HR: stable & adequate Hydration State: stable & adequate Anesthetic Complications: no major complications apparent and Pt Satisfied with anesthetic care
[2019-03-25] MEDS: SODIUM CHLORIDE 0.9% 1000ML 1,000 ML IV SCH (22:55)
[2019-03-25] MEDS: DOCUSATE SODIUM/SENNA 50/8.6MG TAB PO SCH (23:14)
[2019-03-25] MEDS: AMLODIPINE BESYLATE 5 MG TAB PO SCH (23:14)
[2019-03-26] MEDS: CEFAZOLIN 2000MG 2,000 MG/15 ML SYR IV SCH ×2 (00:58→08:21)
[2019-03-26 06:00] LABS: Basophils # (auto) 0.01 K/uL (0-0.2); Basophils % (auto) 0.1 %; Eosinophils # (auto) 0.01 K/uL (0-0.5); Eosinophils % (auto) 0.1 %; Hematocrit (blood only) 28.8 % (37-47); Hemoglobin 9.6 g/dL (12.0-16.0); Immature Granulocytes # (auto) 0.04 K/uL (0.00-0.02); Immature Granulocytes % (auto) 0.4 %; Lymphocytes # (auto) 1.35 K/uL (1.2-3.4); Lymphocytes % (auto) 12.7 %; Mean Corpuscular Hemoglobin 28.2 pg (25-34); Mean Corpuscular Hgb Conc 33.3 g/dL (32-36); Mean Corpuscular Volume 84.7 fL (80-100); Mean Platelet Volume 9.8 fL (7.4-10.4); Monocytes % (auto) 14.1 %; Neutrophils # (auto) 7.75 K/uL (1.4-6.5); Neutrophils % (auto) 72.6 %; Platelet Count 169 K/uL (130-400); RDW Standard Deviation 49.5 fL (36.4-46.3); White Blood Count 10.66 K/uL (4.8-10.8)
[2019-03-26 06:30] LABS: BUN Creatinine Ratio 15.6 (10-20); Calcium 7.1 mg/dl (8.5-10.1); Creatinine Clr Calc Pharmacy 63.2 ml/min; Est GFR (African American) 83.4; Est GFR (Non-African American) 71.9; Potassium 4.8 mmol/L (3.5-5.1)
[2019-03-26 06:44] LABS: Ferritin 48.5 ng/ml (8-388)
[2019-03-26] MEDS: MoRPHine SULFATE 2 MG/ML CARP IV PRN ×3 (08:12→18:38)
[2019-03-26] MEDS: ENOXAPARIN INJ 30 MG/0.3 ML SYR SQ SCH ×2 (08:13→19:27)
[2019-03-26] MEDS: INSULIN ASPART 100 UNITS/ML 3 ML PEN SC SCH ×4 (08:13→20:34)
[2019-03-26 08:48] LABS: Folate (Folic Acid) 8.84 ng/ml (>5.38)
--- NOTE | 2019-03-26 08:49 | Orthopedic Progress Note ---
Date of Service March 26, 2019 Assessment & Plan (1) Closed fracture of proximal end of femur: POD # 1 s/p ORIF Right subtrochanteric femur fracture. Continue pain control. WBAT with walker and assistance as needed. PT/OT. Continue to monitor labs. DVT prophylaxis: TEDs, SCDs while in hospital, Lovenox 30mg Subq BID. Resume diet. Change dressing POD #2 Silverlon to main incision and 2x2 and Tegaderm to 3 smaller incisions. Keep covered until follow up appointment in 2 weeks. Continue care per primary service. D/C planning. Present on Admission?: Yes Subjective Patient is complaining of right leg pain. Notes that she is able to move better than prior to surgery and with the aid of nurses was able to sit up and get out of bed. Review of Systems Review of Systems: All systems reviewed & are unremarkable except as noted in HPI & below Physical Exam Physical Exam: RLE: Dressing Clean, dry, intact. Neurovascularly unchanged. calf soft, non-tender. Results & Data Vital Signs (Past 12 Hours) Vital Signs Temp Pulse Pulse Pulse Resp BP BP 03/26/19 07:00 37.2 C 109 H 18 114/69 03/26/19 04:00 37.5 C 108 H 18 121/71 03/26/19 03:06 37.2 C 109 H 18 123/74 03/26/19 01:52 37 C 107 H 18 102/67 03/26/19 00:45 36.7 C 108 H 18 111/70 03/26/19 00:16 108 H 03/25/19 23:50 36.9 C 109 H 18 119/71 03/25/19 23:15 36.8 C 105 H 18 127/73 03/25/19 23:00 36.8 C 106 H 18 120/74 03/25/19 22:45 36.8 C 103 H 18 127/73 03/25/19 22:30 36.9 C 104 H 18 133/76 03/25/19 22:15 36.8 C 107 H 18 136/75 03/25/19 21:50 36.8 C 103 H 17 127/70 03/25/19 21:40 36.8 C 104 H 17 135/71 03/25/19 21:30 38.0 C H 101 H 15 131/68 03/25/19 21:20 38.0 C H 103 H 17 125/66 03/25/19 21:10 38.0 C H 104 H 18 127/63 03/25/19 21:00 37.4 C 99 H 16 121/53 L 03/25/19 20:50 37.4 C 103 H 15 130/65 Pulse Ox 03/26/19 07:00 97 03/26/19 04:00 98 03/26/19 03:06 98 03/26/19 01:52 98 03/26/19 00:45 98 03/26/19 00:16 03/25/19 23:50 98 03/25/19 23:15 99 03/25/19 23:00 98 03/25/19 22:45 98 03/25/19 22:30 99 03/25/19 22:15 99 03/25/19 21:50 98 03/25/19 21:40 98 03/25/19 21:30 99 03/25/19 21:20 93 03/25/19 21:10 91 03/25/19 21:00 100 03/25/19 20:50 100 Laboratory Results 03/26/19 03/26/19 03/26/19 Range/Units 07:36 05:29 05:29 WBC (4.8-10.8) K/uL RBC (4.2-5.4) M/uL Hgb (12.0-16.0) g/dL Hct (37-47) % MCV (80-100) fL MCH (25-34) pg MCHC (32-36) g/dL RDW Std Deviation (36.4-46.3) fL RDW Coeff of Neal (11.5-14.5) % Plt Count (130-400) K/uL MPV (7.4-10.4) fL Immature Gran % (Auto) % Neut % (Auto) % Lymph % (Auto) % [place] % (Auto) % Eos % (Auto) % Baso % (Auto) % Immature Gran # (Auto) (0.00-0.02) K/uL Neut # (Auto) (1.4-6.5) K/uL Lymph # (Auto) (1.2-3.4) K/uL [place] # (Auto) (0.11-0.59) K/uL Eos # (Auto) (0-0.5) K/uL Baso # (Auto) (0-0.2) K/uL Sodium 138 (136-145) mmol/L Potassium 4.8 (3.5-5.1) mmol/L Chloride 108 H (98-107) mmol/L Carbon Dioxide 22 (21-32) mmol/L Anion Gap 8.0 (3-11) BUN 13 (7-18) mg/dl Creatinine 0.83 (0.6-1.2) mg/dl Est Cr Clr Drug Dosing 63.2 ml/min Est GFR ( Amer) 83.4 Est GFR (Non-Af Amer) 71.9 BUN/Creatinine Ratio 15.6 (10-20) Glucose 251 H (70-99) mg/dl POC Glucose 254 H (70-99) Calcium 7.1 L (8.5-10.1) mg/dl Iron 146 (35-150) mcg/dl TIBC 228 L (250-450) mcg/dl Transferrin 182 L (200-360) mg/dl Ferritin 48.5 (8-388) ng/ml Total Creatine Kinase 1066 H (26-192) U/L Vitamin B12 Pending Folate Pending Blood Type Blood Type Recheck Antibody Screen Crossmatch 03/26/19 03/25/19 03/25/19 Range/Units 05:29 22:30 21:46 WBC 10.66 (4.8-10.8) K/uL RBC 3.40 L (4.2-5.4) M/uL Hgb 9.6 L (12.0-16.0) g/dL Hct 28.8 L (37-47) % MCV 84.7 (80-100) fL MCH 28.2 (25-34) pg MCHC 33.3 (32-36) g/dL RDW Std Deviation 49.5 H (36.4-46.3) fL RDW Coeff of Neal 16.0 H (11.5-14.5) % Plt Count 169 (130-400) K/uL MPV 9.8 (7.4-10.4) fL Immature Gran % (Auto) 0.4 % Neut % (Auto) 72.6 % Lymph % (Auto) 12.7 % [place] % (Auto) 14.1 % Eos % (Auto) 0.1 % Baso % (Auto) 0.1 % Immature Gran # (Auto) 0.04 H (0.00-0.02) K/uL Neut # (Auto) 7.75 H (1.4-6.5) K/uL Lymph # (Auto) 1.35 (1.2-3.4) K/uL [place] # (Auto) 1.50 H (0.11-0.59) K/uL Eos # (Auto) 0.01 (0-0.5) K/uL Baso # (Auto) 0.01 (0-0.2) K/uL Sodium (136-145) mmol/L Potassium (3.5-5.1) mmol/L Chloride (98-107) mmol/L Carbon Dioxide (21-32) mmol/L Anion Gap (3-11) BUN (7-18) mg/dl Creatinine (0.6-1.2) mg/dl Est Cr Clr Drug Dosing ml/min Est GFR ( Amer) Est GFR (Non-Af Amer) BUN/Creatinine Ratio (10-20) Glucose (70-99) mg/dl POC Glucose 220 H 204 H (70-99) Calcium (8.5-10.1) mg/dl Iron (35-150) mcg/dl TIBC (250-450) mcg/dl Transferrin (200-360) mg/dl Ferritin (8-388) ng/ml Total Creatine Kinase (26-192) U/L Vitamin B12 Folate Blood Type Blood Type Recheck Antibody Screen Crossmatch 03/25/19 03/25/19 03/25/19 Range/Units 16:02 11:45 03:57 WBC (4.8-10.8) K/uL RBC (4.2-5.4) M/uL Hgb (12.0-16.0) g/dL Hct (37-47) % MCV (80-100) fL MCH (25-34) pg MCHC (32-36) g/dL RDW Std Deviation (36.4-46.3) fL RDW Coeff of Neal (11.5-14.5) % Plt Count (130-400) K/uL MPV (7.4-10.4) fL Immature Gran % (Auto) % Neut % (Auto) % Lymph % (Auto) % [place] % (Auto) % Eos % (Auto) % Baso % (Auto) % Immature Gran # (Auto) (0.00-0.02) K/uL Neut # (Auto) (1.4-6.5) K/uL Lymph # (Auto) (1.2-3.4) K/uL [place] # (Auto) (0.11-0.59) K/uL Eos # (Auto) (0-0.5) K/uL Baso # (Auto) (0-0.2) K/uL Sodium (136-145) mmol/L Potassium (3.5-5.1) mmol/L Chloride (98-107) mmol/L Carbon Dioxide (21-32) mmol/L Anion Gap (3-11) BUN (7-18) mg/dl Creatinine (0.6-1.2) mg/dl Est Cr Clr Drug Dosing ml/min Est GFR ( Amer) Est GFR (Non-Af Amer) BUN/Creatinine Ratio (10-20) Glucose (70-99) mg/dl POC Glucose 102 H 106 H (70-99) Calcium (8.5-10.1) mg/dl Iron (35-150) mcg/dl TIBC (250-450) mcg/dl Transferrin (200-360) mg/dl Ferritin (8-388) ng/ml Total Creatine Kinase (26-192) U/L Vitamin B12 Folate Blood Type Blood Type Recheck A Positive Antibody Screen Crossmatch 03/24/19 Range/Units 17:33 WBC (4.8-10.8) K/uL RBC (4.2-5.4) M/uL Hgb (12.0-16.0) g/dL Hct (37-47) % MCV (80-100) fL MCH (25-34) pg MCHC (32-36) g/dL RDW Std Deviation (36.4-46.3) fL RDW Coeff of Neal (11.5-14.5) % Plt Count (130-400) K/uL MPV (7.4-10.4) fL Immature Gran % (Auto) % Neut % (Auto) % Lymph % (Auto) % [place] % (Auto) % Eos % (Auto) % Baso % (Auto) % Immature Gran # (Auto) (0.00-0.02) K/uL Neut # (Auto) (1.4-6.5) K/uL Lymph # (Auto) (1.2-3.4) K/uL [place] # (Auto) (0.11-0.59) K/uL Eos # (Auto) (0-0.5) K/uL Baso # (Auto) (0-0.2) K/uL Sodium (136-145) mmol/L Potassium (3.5-5.1) mmol/L Chloride (98-107) mmol/L Carbon Dioxide (21-32) mmol/L Anion Gap (3-11) BUN (7-18) mg/dl Creatinine (0.6-1.2) mg/dl Est Cr Clr Drug Dosing ml/min Est GFR ( Amer) Est GFR (Non-Af Amer) BUN/Creatinine Ratio (10-20) Glucose (70-99) mg/dl POC Glucose (70-99) Calcium (8.5-10.1) mg/dl Iron (35-150) mcg/dl TIBC (250-450) mcg/dl Transferrin (200-360) mg/dl Ferritin (8-388) ng/ml Total Creatine Kinase (26-192) U/L Vitamin B12 Folate Blood Type A Positive Blood Type Recheck Antibody Screen NEGATIVE Crossmatch See Detail
[2019-03-26] MEDS ORDERED: INSULIN GLARGINE SOLOSTAR 100 UNITS/ML 3 ML PEN SC SCH (09:00)
--- NOTE | 2019-03-26 09:37 | Anesthesiology Progress Note ---
Date of Service March 26, 2019 Anesthesia Post Procedure Vital Signs Vital Signs: Temp Pulse Pulse Pulse Resp BP BP 03/26/19 07:00 37.2 C 109 H 18 114/69 03/26/19 04:00 37.5 C 108 H 18 121/71 03/26/19 03:06 37.2 C 109 H 18 123/74 03/26/19 01:52 37 C 107 H 18 102/67 03/26/19 00:45 36.7 C 108 H 18 111/70 03/26/19 00:16 108 H 03/25/19 23:50 36.9 C 109 H 18 119/71 03/25/19 23:15 36.8 C 105 H 18 127/73 03/25/19 23:00 36.8 C 106 H 18 120/74 03/25/19 22:45 36.8 C 103 H 18 127/73 03/25/19 22:30 36.9 C 104 H 18 133/76 03/25/19 22:15 36.8 C 107 H 18 136/75 03/25/19 21:50 36.8 C 103 H 17 127/70 03/25/19 21:40 36.8 C 104 H 17 135/71 03/25/19 21:30 38.0 C H 101 H 15 131/68 03/25/19 21:20 38.0 C H 103 H 17 125/66 03/25/19 21:10 38.0 C H 104 H 18 127/63 03/25/19 21:00 37.4 C 99 H 16 121/53 L 03/25/19 20:50 37.4 C 103 H 15 130/65 03/25/19 20:40 37.4 C 103 H 17 133/67 03/25/19 20:29 37.4 C 106 H 16 97/53 L 03/25/19 16:18 109 H 18 118/69 03/25/19 16:16 105 H 03/25/19 14:50 37.0 C 109 H 18 03/25/19 11:39 36.8 C 100 H 18 112/63 BP Pulse Ox 03/26/19 07:00 97 03/26/19 04:00 98 03/26/19 03:06 98 03/26/19 01:52 98 03/26/19 00:45 98 03/26/19 00:16 03/25/19 23:50 98 03/25/19 23:15 99 03/25/19 23:00 98 03/25/19 22:45 98 03/25/19 22:30 99 03/25/19 22:15 99 03/25/19 21:50 98 03/25/19 21:40 98 03/25/19 21:30 99 03/25/19 21:20 93 03/25/19 21:10 91 03/25/19 21:00 100 03/25/19 20:50 100 03/25/19 20:40 89 L 03/25/19 20:29 98 03/25/19 16:18 93 03/25/19 16:16 03/25/19 14:50 129/73 92 03/25/19 11:39 90 Pain Intensity Right Hip: Pain Intensity: 7 Notes Mental Status: alert / awake / arousable and participated in evaluation Patient Amnestic to Procedure: Yes Nausea / Vomiting: adequately controlled Pain: adequately controlled and improving with treatment Airway Patency, RR, SpO2: stable & adequate BP & HR: stable & adequate Hydration State: stable & adequate Anesthetic Complications: no major complications apparent
[2019-03-26] MEDS: SODIUM CHLORIDE 0.9% 1000ML 1,000 ML IV SCH ×2 (10:02→18:38)
--- NOTE | 2019-03-26 13:38 | Hospitalist Progress Note ---
Date of Service March 26, 2019 Assessment & Plan (1) Closed right hip fracture: Secondary to mechanical fall --Status post right hip surgery 03/25/2019 Stable overall On Lovenox for DVT prophylaxis --CPK level increased to 1000, renal function okay Monitor levels Hyperkalemia, possibly from home ACEI, mild rhabdomyolysis (Recurrent hyperkalemia on review of outpatient chemistries from last year) -- resolved -- monitor -- d/c Lisinopril DM 2 on oral medications, well-controlled as of recent outpatient hemoglobin A1c of 6.5 last February 2019 -- [facility] Pharmacy glycemic consult hypertension, slightly elevated secondary discomfort -- improved, will monitor -- Lisinopril changed to Amlodipine Hypothyroidism, TSH noted to be elevated on last month's outpatient blood draw (4.59) hx transverse myelitis, deficits at baseline left renal mass, likely benign and stable measurement as of recent outpatient [facility] Urology visit March 2018 Acute on chronic anemia, hemoglobin drop from baseline (low iron indices on recent outpatient anemia blood work possibly related to gastric bypass surgery; no prior colonoscopies, no history of overt GI/ blood loss as per patient account) past tobacco abuse. --Iron level 146, ferritin 48.5, vitamin B12 232, folate 8.8, essentially normal -- no signs of overt GI bleed DVT prophylaxis. Lovenox 30 mg subcutaneous twice a day Full code Disposition will need PT/OT to determine requirement for Inpatient Rehab Subjective ff up for s/p right hip surgery seen resting in bed, comfortable sleeping but easily awakened Having pain in the right hip, relieved by analgesics Able to tolerate PT and occupational therapy today Denies chest pain, shortness of breath, dizziness, palpitations No other symptoms Review of Systems Review of Systems: All systems reviewed & are unremarkable except as noted in HPI & below Physical Exam Physical Exam: General- oriented x 3, not in distress, speaks in sentences with no effort or accessory muscle use Eyes- anicteric Neck- no JVD Lungs- clear breath sounds, no crackles or wheezing Heart- normal rate, regular rhythm; no murmurs Abdomen- normal bowel sounds, nondistended, soft, nontender Extremities- no pretibial edema, no calf tenderness Right hip dressing in place, no bleeding noted, with mild edema Neuro- alert, oriented x 3; chronic lower extremity weakness otherwise no gross focal neurologic deficits Skin- warm & dry Results & Data Vital Signs (Past 12 Hours) Vital Signs Temp Pulse Pulse Resp BP Pulse Ox 03/26/19 11:32 37.2 C 95 H 20 116/73 98 03/26/19 08:00 107 H 03/26/19 07:00 37.2 C 109 H 18 114/69 97 03/26/19 04:00 37.5 C 108 H 18 121/71 98 03/26/19 03:06 37.2 C 109 H 18 123/74 98 03/26/19 01:52 37 C 107 H 18 102/67 98 Laboratory Results Laboratory Results - last 24 hr 03/24/19 03/25/19 03/25/19 17:33 21:46 22:30 WBC RBC Hgb Hct MCV MCH MCHC RDW Std Deviation RDW Coeff of Neal Plt Count MPV Immature Gran % (Auto) Neut % (Auto) Lymph % (Auto) [place] % (Auto) Eos % (Auto) Baso % (Auto) Immature Gran # (Auto) Neut # (Auto) Lymph # (Auto) [place] # (Auto) Eos # (Auto) Baso # (Auto) Sodium Potassium Chloride Carbon Dioxide Anion Gap BUN Creatinine Est Cr Clr Drug Dosing Est GFR ( Amer) Est GFR (Non-Af Amer) BUN/Creatinine Ratio Glucose POC Glucose 204 H 220 H Calcium Iron TIBC Transferrin Ferritin Total Creatine Kinase Vitamin B12 Folate Blood Type A Positive Antibody Screen NEGATIVE Crossmatch See Detail 03/26/19 03/26/19 03/26/19 05:29 05:29 05:29 WBC 10.66 RBC 3.40 L Hgb 9.6 L Hct 28.8 L MCV 84.7 MCH 28.2 MCHC 33.3 RDW Std Deviation 49.5 H RDW Coeff of Neal 16.0 H Plt Count 169 MPV 9.8 Immature Gran % (Auto) 0.4 Neut % (Auto) 72.6 Lymph % (Auto) 12.7 [place] % (Auto) 14.1 Eos % (Auto) 0.1 Baso % (Auto) 0.1 Immature Gran # (Auto) 0.04 H Neut # (Auto) 7.75 H Lymph # (Auto) 1.35 [place] # (Auto) 1.50 H Eos # (Auto) 0.01 Baso # (Auto) 0.01 Sodium 138 Potassium 4.8 Chloride 108 H Carbon Dioxide 22 Anion Gap 8.0 BUN 13 Creatinine 0.83 Est Cr Clr Drug Dosing 63.2 Est GFR ( Amer) 83.4 Est GFR (Non-Af Amer) 71.9 BUN/Creatinine Ratio 15.6 Glucose 251 H POC Glucose Calcium 7.1 L Iron 146 TIBC 228 L Transferrin 182 L Ferritin 48.5 Total Creatine Kinase 1066 H Vitamin B12 232 Folate 8.84 Blood Type Antibody Screen Crossmatch 03/26/19 03/26/19 07:36 11:43 WBC RBC Hgb Hct MCV MCH MCHC RDW Std Deviation RDW Coeff of Neal Plt Count MPV Immature Gran % (Auto) Neut % (Auto) Lymph % (Auto) [place] % (Auto) Eos % (Auto) Baso % (Auto) Immature Gran # (Auto) Neut # (Auto) Lymph # (Auto) [place] # (Auto) Eos # (Auto) Baso # (Auto) Sodium Potassium Chloride Carbon Dioxide Anion Gap BUN Creatinine Est Cr Clr Drug Dosing Est GFR ( Amer) Est GFR (Non-Af Amer) BUN/Creatinine Ratio Glucose POC Glucose 254 H 241 H Calcium Iron TIBC Transferrin Ferritin Total Creatine Kinase Vitamin B12 Folate Blood Type Antibody Screen Crossmatch
[2019-03-26] MEDS ORDERED: PHARMACY GLYCEMIC MGMT CONSULT PRN (13:58)
[2019-03-26] MEDS ORDERED: INSULIN GLARGINE SOLOSTAR 100 UNITS/ML 3 ML PEN SC ONE (14:30)
--- NOTE | 2019-03-26 14:33 | Pharmacy Report ---
Glycemic Control Consultation - Date of Service March 26, 2019 - Scope Scope: Glycemic Pharmacist consulted by Dr James on 03/26 for glycemic control and to write orders per [facility] inpatient glycemic control protocol - Objective Weight: 81.2 kg Accuchecks BSG (last 24hrs): 03/25/19 03/25/19 03/25/19 16:02 21:46 22:30 Glucose POC Glucose 102 H 204 H 220 H 03/26/19 03/26/19 03/26/19 05:29 07:36 11:43 Glucose 251 H POC Glucose 254 H 241 H Laboratory Data (last 24hrs): 03/26/19 05:29 Potassium 4.8 Carbon Dioxide 22 Anion Gap 8.0 Creatinine 0.83 Est Cr Clr Drug Dosing 63.2 - Recent Pertinent Medications Outpatient Anti-diabetic Regimen: * glimepiride, metformin * A1c = ordered for 03/27 The patient is currently receiving: * Basal insulin: Lantus 5 units every 24 hours * Correctional Insulin: Novolog Correction per scale ACHS Goal Range: Low 140 mg/dL - High 180 mg/dL Correction Factor: 25 mg/dL/unit * Prandial insulin: Per carb ratio of 1 unit per 15 grams CHO consumed Risk Factors for Insulin Resistance: * Steroids: dex yesterday in OR * Recent Surgery: POD1 * Diet: T2DM - Assessment & Plan Assessment & Plan: ASSESSMENT: * 68 year old female now s/p hip surgery. Pharmacy consulted for glycemic management. Received dex in OR yesterday BSGs elevated * Received 29 units of insulin yesterday, of which 5 were basal insulin - Fasting this am elevated at 254 mg/dL; will give Lantus 10 units x1 now * Tighten CF/CR with dinner today PLAN FOR INPATIENT GLYCEMIC CONTROL: * Basal insulin * Lantus 10 x 1 (in addition to 5 units this AM) * Bolus insulin * NovoLog per scale ACHS or Q6hrs while NPO * Goal Range: Low 120 mg/dL - High 160 mg/dL * Correction Factor: 25 mg/dL/unit * Nutritional / Prandial insulin per carb ratio of 1 unit per 9 grams CHO consumed * Please note that the plan above was derived based on current level of insulin resistance and hospital stress. These recommendations are appropriate for inpatient admission only. Plan of care upon discharge will need to be reassessed to avoid potential outpatient hypo/hyperglycemia. Thank you.
[2019-03-26] MEDS: AMLODIPINE BESYLATE 5 MG TAB PO SCH (20:36)
[2019-03-26] MEDS: DOCUSATE SODIUM/SENNA 50/8.6MG TAB PO SCH (20:37)
--- NOTE | 2019-03-26 23:30 | Operative Report ---
Post Operative Report Pre & Post Diagnosis Operation Date: 03/25/19 07:05 Pre-Op Diagnosis: Closed fracture of proximal end of femur. Post-Op Diagnosis: Closed fracture of proximal end of femur. I identified the patient and participated in the time-out.: Yes Procedure Operation Date: 03/25/19 07:05 Actual Procedures p Right Hip Open Reduction Internal Fixation Subtrochanteric Fracture(Right) - Harrison Ferris MD Surgeon Harrison Ferris MD Assisted Living Director Agnela Loza MD & Chloé Church PA-C Estimated Blood Loss 200 Findings Consistent with Post-Op Diagnosis Specimens as per procedure notes Complications none Disposition Accompanied Patient To Recovery: Yes Disposition: Recovery Room Description of Procedure Lateral decubitus position, standard prep and drape, time out Right Hip Open Reduction Internal Fixation Subtrochanteric Fracture Please see Dr Ferris's procedure notes for specific details I was present throughout the case, assisted for wound closure and transferred the patient to PACU in stable condition I attest to the content of the Intraoperative Record and any orders documented therein. Any exceptions are noted below.
[2019-03-27] MEDS: INSULIN ASPART 100 UNITS/ML 3 ML PEN SC SCH ×6 (00:13→21:05)
[2019-03-27] MEDS: SODIUM CHLORIDE 0.9% 1000ML 1,000 ML IV SCH ×3 (02:46→19:49)
[2019-03-27] MEDS: ACETAMINOPHEN 325 MG TAB PO PRN (04:30)
[2019-03-27 06:57] LABS: Basophils # (auto) 0.01 K/uL (0-0.2); Basophils % (auto) 0.1 %; Eosinophils # (auto) 0.03 K/uL (0-0.5); Eosinophils % (auto) 0.4 %; Hematocrit (blood only) 24.2 % (37-47); Hemoglobin 8.1 g/dL (12.0-16.0); Immature Granulocytes # (auto) 0.02 K/uL (0.00-0.02); Immature Granulocytes % (auto) 0.2 %; Lymphocytes % (auto) 16.5 %; Mean Corpuscular Hemoglobin 28.6 pg (25-34); Mean Corpuscular Hgb Conc 33.5 g/dL (32-36); Mean Corpuscular Volume 85.5 fL (80-100); Mean Platelet Volume 9.2 fL (7.4-10.4); Monocytes % (auto) 16.5 %; Neutrophils # (auto) 5.62 K/uL (1.4-6.5); Neutrophils % (auto) 66.3 %; Platelet Count 145 K/uL (130-400); RDW Coefficient of Variation 15.9 % (11.5-14.5); RDW Standard Deviation 49.5 fL (36.4-46.3); Red Blood Count 2.83 M/uL (4.2-5.4); White Blood Count 8.48 K/uL (4.8-10.8)
[2019-03-27 07:29] LABS: BUN Creatinine Ratio 15.1 (10-20); Calcium 7.4 mg/dl (8.5-10.1); Est GFR (African American) 102.5; Est GFR (Non-African American) 88.4; Potassium 3.7 mmol/L (3.5-5.1)
[2019-03-27] MEDS: ENOXAPARIN INJ 30 MG/0.3 ML SYR SQ SCH (08:14)
[2019-03-27] MEDS: INSULIN GLARGINE SOLOSTAR 100 UNITS/ML 3 ML PEN SC SCH ×2 (08:19→21:09)
--- NOTE | 2019-03-27 09:54 | Orthopedic Progress Note ---
Date of Service March 27, 2019 Assessment & Plan (1) Closed fracture of proximal end of femur: POD # 2 s/p ORIF Right subtrochanteric femur fracture. Acute on chronic blood loss anemia. Hgb 9.6 down to 8.1. Remains Tachycardic. Continue pain control. WBAT with walker and assistance as needed. PT/OT. Continue to monitor labs. DVT prophylaxis: TEDs, SCDs while in hospital, Lovenox 30mg Subq daily until Hgb stabilizes. Resume diet. Change dressing POD #2 Silverlon to main incision and 2x2 and Tegaderm to 3 smaller incisions. Keep covered until follow up appointment in 2 weeks. May change smaller dressings as needed. Continue care per primary service. D/C planning. Subjective Feeling better. Right hip pain. Review of Systems Review of Systems: All systems reviewed & are unremarkable except as noted in HPI & below Physical Exam Physical Exam: RLE: Neurovascularly unchanged. Incisions are clean,dry, intact. Long incision with multiple small, clear fracture blisters along edge of Zipline. No evidence of infection. Calf soft and non-tender. Results & Data Vital Signs (Past 12 Hours) Vital Signs Temp Pulse Pulse Resp BP Pulse Ox 03/27/19 07:00 37.1 C 108 H 107 H 20 114/63 95 03/27/19 05:32 37.7 C H 03/27/19 05:21 115 H 03/27/19 04:00 37.8 C H 112 H 20 127/69 95 03/26/19 23:00 37.3 C 107 H 18 110/68 99 Laboratory Results 03/27/19 03/27/19 03/27/19 Range/Units 07:32 06:14 06:14 WBC 8.48 (4.8-10.8) K/uL RBC 2.83 L (4.2-5.4) M/uL Hgb 8.1 L (12.0-16.0) g/dL Hct 24.2 L (37-47) % MCV 85.5 (80-100) fL MCH 28.6 (25-34) pg MCHC 33.5 (32-36) g/dL RDW Std Deviation 49.5 H (36.4-46.3) fL RDW Coeff of Neal 15.9 H (11.5-14.5) % Plt Count 145 (130-400) K/uL MPV 9.2 (7.4-10.4) fL Immature Gran % (Auto) 0.2 % Neut % (Auto) 66.3 % Lymph % (Auto) 16.5 % [place] % (Auto) 16.5 % Eos % (Auto) 0.4 % Baso % (Auto) 0.1 % Immature Gran # (Auto) 0.02 (0.00-0.02) K/uL Neut # (Auto) 5.62 (1.4-6.5) K/uL Lymph # (Auto) 1.40 (1.2-3.4) K/uL [place] # (Auto) 1.40 H (0.11-0.59) K/uL Eos # (Auto) 0.03 (0-0.5) K/uL Baso # (Auto) 0.01 (0-0.2) K/uL Sodium 139 (136-145) mmol/L Potassium 3.7 D (3.5-5.1) mmol/L Chloride 109 H (98-107) mmol/L Carbon Dioxide 25 (21-32) mmol/L Anion Gap 5.0 (3-11) BUN 11 (7-18) mg/dl Creatinine 0.70 (0.6-1.2) mg/dl Est Cr Clr Drug Dosing 74.0 ml/min Est GFR ( Amer) 102.5 Est GFR (Non-Af Amer) 88.4 BUN/Creatinine Ratio 15.1 (10-20) Glucose 125 H (70-99) mg/dl POC Glucose 131 H (70-99) Estimat Average Glucose Hemoglobin A1c Calcium 7.4 L (8.5-10.1) mg/dl Total Creatine Kinase 966 H (26-192) U/L Crossmatch 03/27/19 03/27/19 03/27/19 Range/Units 06:14 04:06 00:01 WBC (4.8-10.8) K/uL RBC (4.2-5.4) M/uL Hgb (12.0-16.0) g/dL Hct (37-47) % MCV (80-100) fL MCH (25-34) pg MCHC (32-36) g/dL RDW Std Deviation (36.4-46.3) fL RDW Coeff of Neal (11.5-14.5) % Plt Count (130-400) K/uL MPV (7.4-10.4) fL Immature Gran % (Auto) % Neut % (Auto) % Lymph % (Auto) % [place] % (Auto) % Eos % (Auto) % Baso % (Auto) % Immature Gran # (Auto) (0.00-0.02) K/uL Neut # (Auto) (1.4-6.5) K/uL Lymph # (Auto) (1.2-3.4) K/uL [place] # (Auto) (0.11-0.59) K/uL Eos # (Auto) (0-0.5) K/uL Baso # (Auto) (0-0.2) K/uL Sodium (136-145) mmol/L Potassium (3.5-5.1) mmol/L Chloride (98-107) mmol/L Carbon Dioxide (21-32) mmol/L Anion Gap (3-11) BUN (7-18) mg/dl Creatinine (0.6-1.2) mg/dl Est Cr Clr Drug Dosing ml/min Est GFR ( Amer) Est GFR (Non-Af Amer) BUN/Creatinine Ratio (10-20) Glucose (70-99) mg/dl POC Glucose 128 H 208 H (70-99) Estimat Average Glucose Pending Hemoglobin A1c Pending Calcium (8.5-10.1) mg/dl Total Creatine Kinase (26-192) U/L Crossmatch 03/26/19 03/26/19 03/26/19 Range/Units 20:10 16:37 11:43 WBC (4.8-10.8) K/uL RBC (4.2-5.4) M/uL Hgb (12.0-16.0) g/dL Hct (37-47) % MCV (80-100) fL MCH (25-34) pg MCHC (32-36) g/dL RDW Std Deviation (36.4-46.3) fL RDW Coeff of Neal (11.5-14.5) % Plt Count (130-400) K/uL MPV (7.4-10.4) fL Immature Gran % (Auto) % Neut % (Auto) % Lymph % (Auto) % [place] % (Auto) % Eos % (Auto) % Baso % (Auto) % Immature Gran # (Auto) (0.00-0.02) K/uL Neut # (Auto) (1.4-6.5) K/uL Lymph # (Auto) (1.2-3.4) K/uL [place] # (Auto) (0.11-0.59) K/uL Eos # (Auto) (0-0.5) K/uL Baso # (Auto) (0-0.2) K/uL Sodium (136-145) mmol/L Potassium (3.5-5.1) mmol/L Chloride (98-107) mmol/L Carbon Dioxide (21-32) mmol/L Anion Gap (3-11) BUN (7-18) mg/dl Creatinine (0.6-1.2) mg/dl Est Cr Clr Drug Dosing ml/min Est GFR ( Amer) Est GFR (Non-Af Amer) BUN/Creatinine Ratio (10-20) Glucose (70-99) mg/dl POC Glucose 295 H 254 H 241 H (70-99) Estimat Average Glucose Hemoglobin A1c Calcium (8.5-10.1) mg/dl Total Creatine Kinase (26-192) U/L Crossmatch 03/24/19 Range/Units 17:33 WBC (4.8-10.8) K/uL RBC (4.2-5.4) M/uL Hgb (12.0-16.0) g/dL Hct (37-47) % MCV (80-100) fL MCH (25-34) pg MCHC (32-36) g/dL RDW Std Deviation (36.4-46.3) fL RDW Coeff of Neal (11.5-14.5) % Plt Count (130-400) K/uL MPV (7.4-10.4) fL Immature Gran % (Auto) % Neut % (Auto) % Lymph % (Auto) % Sunflower % (Auto) % Eos % (Auto) % Baso % (Auto) % Immature Gran # (Auto) (0.00-0.02) K/uL Neut # (Auto) (1.4-6.5) K/uL Lymph # (Auto) (1.2-3.4) K/uL Sunflower # (Auto) (0.11-0.59) K/uL Eos # (Auto) (0-0.5) K/uL Baso # (Auto) (0-0.2) K/uL Sodium (136-145) mmol/L Potassium (3.5-5.1) mmol/L Chloride (98-107) mmol/L Carbon Dioxide (21-32) mmol/L Anion Gap (3-11) BUN (7-18) mg/dl Creatinine (0.6-1.2) mg/dl Est Cr Clr Drug Dosing ml/min Est GFR ( Amer) Est GFR (Non-Af Amer) BUN/Creatinine Ratio (10-20) Glucose (70-99) mg/dl POC Glucose (70-99) Estimat Average Glucose Hemoglobin A1c Calcium (8.5-10.1) mg/dl Total Creatine Kinase (26-192) U/L Crossmatch See Detail
[2019-03-27] MEDS: MoRPHine SULFATE 2 MG/ML CARP IV PRN (10:06)
--- NOTE | 2019-03-27 10:10 | Pharmacy Report ---
Pharmacy Glycemic Short Note 2 - Date of Service March 27, 2019 - Glycemic Short BSG Results (Last 24 hours): 03/26/19 03/26/19 03/26/19 11:43 16:37 20:10 Glucose POC Glucose 241 H 254 H 295 H 03/27/19 03/27/19 03/27/19 00:01 04:06 06:14 Glucose 125 H POC Glucose 208 H 128 H 03/27/19 07:32 Glucose POC Glucose 131 H ASSESSMENT: 03/27 * Patient received 35 units of insulin yesterday, of which 15 were basal insulin - Fasting BSG this AM 125 mg/dL * Will split in half and give 7 units this AM with scale for tonight * Tightened CR with breakfast this AM, but will loosen for lunch as steroids likely wearing off 03/26 * 68 year old female now s/p hip surgery. Pharmacy consulted for glycemic management. Received dex in OR yesterday BSGs elevated * Received 29 units of insulin yesterday, of which 5 were basal insulin - Fasting this am elevated at 254 mg/dL; will give Lantus 10 units x1 now * Tighten CF/CR with dinner today PLAN FOR INPATIENT GLYCEMIC CONTROL: * Basal insulin * Lantus 7 this AM * Lantus HS per scale for BSG <180 no insulin, 180 or more - give 5 units * Bolus insulin * NovoLog per scale ACHS or Q6hrs while NPO * Goal Range: Low 120 mg/dL - High 160 mg/dL * Correction Factor: 30 mg/dL/unit * Nutritional / Prandial insulin per carb ratio of 1 unit per 10 grams CHO consumed * Please note that the plan above was derived based on current level of insulin resistance and hospital stress. These recommendations are appropriate for inpatient admission only. Plan of care upon discharge will need to be reassessed to avoid potential outpatient hypo/hyperglycemia.
[2019-03-27] MEDS: OXYCODONE HCL IR 5 MG TAB (IMMEDIATE RELEASE) PO PRN (14:33)
[2019-03-27] MEDS ORDERED: MAGNESIUM HYDROXIDE SUSP 30 ML UDC PO ONE (14:36)
[2019-03-27] MEDS ORDERED: bisacodyL 10 MG SUPP PR PRN (14:37)
[2019-03-27] MEDS ORDERED: MAGNESIUM HYDROXIDE SUSP 30 ML UDC PO PRN (14:37)
--- NOTE | 2019-03-27 14:45 | Hospitalist Progress Note ---
Date of Service March 27, 2019 Assessment & Plan (1) Closed right hip fracture: Secondary to mechanical fall --Status post right hip surgery 03/25/2019 Hg 8.1 management noted below On Lovenox for DVT prophylaxis --CPK level increased to 1000, renal function okay CPK improved to 900s, continue IV NSS -- PT recommending Rehab will discuss with case management specialistmanager of case management on chronic anemia -- hemoglobin drop from baseline (low iron indices on recent outpatient anemia blood work possibly related to gastric bypass surgery; no prior colonoscopies, no history of overt GI/ blood loss as per patient account) past tobacco abuse. --Iron level 146, ferritin 48.5, vitamin B12 232, folate 8.8, essentially normal -- no signs of overt GI bleed -- possible component of acute blood loss from surgery s/p transfusion of 2 units PRBC -- Hg 8.1, asymptomatic monitor maintain Hg > 8 E coli UTI -- (+) low grade fever -- Urine Cx: (+) E coli -- Ceftriaxone IV Day 1 Constipation -- add Milk of Magnesium PRN Dulcolax suppository Hyperkalemia, possibly from home ACEI, mild rhabdomyolysis (Recurrent hyperkalemia on review of outpatient chemistries from last year) -- resolved -- monitor -- Lisinopril discontinued DM 2 on oral medications, well-controlled as of recent outpatient hemoglobin A1c of 6.5 last February 2019 -- ISS and Lantus BSGs within acceptable range Pharmacy glycemic consult ordered Hypertension, slightly elevated secondary discomfort -- improved, stable -- Lisinopril changed to Amlodipine Hypothyroidism, TSH noted to be elevated on last month's outpatient blood draw (4.59) History of transverse myelitis, deficits at baseline Left renal mass, likely benign and stable measurement as of recent outpatient [facility] [place] 2018 DVT prophylaxis. Lovenox 30 mg subcutaneous daily Full code Disposition PT recommending rehab Subjective ff up for right hip fracture s/p surgery seen resting in bed, comfortable visiting at the bedside states she feels improved today compared to yesterday right hip pain well controlled denies chest pain, dyspnea, palpitations, dizziness no abdominal pain, nausea, (+) low grade fever noted no other symptoms Review of Systems Review of Systems: All systems reviewed & are unremarkable except as noted in HPI & below Physical Exam Physical Exam: General- oriented x 3, not in distress, speaks in sentences with no effort or accessory muscle use Eyes- anicteric Neck- no JVD Lungs- clear breath sounds bilaterally no crackles no wheezing Heart- normal rate, regular rhythm; no murmurs Abdomen- normal bowel sounds, nondistended, soft, nontender Extremities- no pretibial edema, no calf tenderness (+) mild edema on the right thigh, incision site with heavy dressing in place Neuro- alert, oriented x 3; chronic lower extremity edema, gross focal neurologic deficits Skin- warm & dry Results & Data Vital Signs (Past 12 Hours) Vital Signs Temp Pulse Pulse Resp BP Pulse Ox 03/27/19 11:57 37.6 C H 103 H 20 128/72 95 03/27/19 07:00 37.1 C 108 H 107 H 20 114/63 95 03/27/19 05:32 37.7 C H 03/27/19 05:21 115 H 03/27/19 04:00 37.8 C H 112 H 20 127/69 95
[2019-03-27] MEDS: cefTRIAXone SODIUM 1,000 MG in DEXTROSE 5% 50 ML IV SCH (15:55)
[2019-03-27] MEDS: AMLODIPINE BESYLATE 5 MG TAB PO SCH (21:01)
[2019-03-27] MEDS: DOCUSATE SODIUM/SENNA 50/8.6MG TAB PO SCH (21:07)
[2019-03-28] MEDS: ACETAMINOPHEN 325 MG TAB PO PRN ×2 (00:10→13:11)
[2019-03-28] MEDS: SODIUM CHLORIDE 0.9% 1000ML 1,000 ML IV SCH ×3 (03:34→17:43)
[2019-03-28 05:44] LABS: Basophils # (auto) 0.01 K/uL (0-0.2); Basophils % (auto) 0.1 %; Eosinophils # (auto) 0.22 K/uL (0-0.5); Eosinophils % (auto) 2.8 %; Hematocrit (blood only) 23.9 % (37-47); Hemoglobin 7.8 g/dL (12.0-16.0); Immature Granulocytes # (auto) 0.04 K/uL (0.00-0.02); Immature Granulocytes % (auto) 0.5 %; Lymphocytes # (auto) 1.38 K/uL (1.2-3.4); Lymphocytes % (auto) 17.8 %; Mean Corpuscular Hemoglobin 28.4 pg (25-34); Mean Corpuscular Hgb Conc 32.6 g/dL (32-36); Mean Corpuscular Volume 86.9 fL (80-100); Mean Platelet Volume 9.1 fL (7.4-10.4); Monocytes # (auto) 1.06 K/uL (0.11-0.59); Monocytes % (auto) 13.6 %; Neutrophils # (auto) 5.06 K/uL (1.4-6.5); Neutrophils % (auto) 65.2 %; Platelet Count 160 K/uL (130-400); RDW Coefficient of Variation 15.7 % (11.5-14.5); Red Blood Count 2.75 M/uL (4.2-5.4); White Blood Count 7.77 K/uL (4.8-10.8)
[2019-03-28 06:09] LABS: Ovalocytes 1+
[2019-03-28 06:16] LABS: BUN Creatinine Ratio 13.4 (10-20); Calcium 7.1 mg/dl (8.5-10.1); Creatinine Clr Calc Pharmacy 84.9 ml/min; Est GFR (African American) 107.2; Est GFR (Non-African American) 92.5; Potassium 3.7 mmol/L (3.5-5.1)
[2019-03-28 06:59] LABS: Estimated Average Glucose 140 mg/dl; Hemoglobin A1C 6.5 % (4.5-5.6)
[2019-03-28] MEDS: ENOXAPARIN INJ 30 MG/0.3 ML SYR SQ SCH (08:23)
[2019-03-28] MEDS: INSULIN ASPART 100 UNITS/ML 3 ML PEN SC SCH ×4 (08:23→21:12)
[2019-03-28] MEDS: INSULIN GLARGINE SOLOSTAR 100 UNITS/ML 3 ML PEN SC SCH ×2 (08:24→21:10)
--- NOTE | 2019-03-28 09:41 | Orthopedic Progress Note ---
Date of Service March 28, 2019 Assessment & Plan (1) Closed fracture of proximal end of femur: POD # 2 s/p ORIF Right subtrochanteric femur fracture. Acute on chronic blood loss anemia. Hgb this AM 7.7. Pulse 99. Continue pain control. WBAT with walker and assistance as needed. PT/OT. Continue to monitor labs. Per medicine note HGB should be 8 or above. Medicine to address. DVT prophylaxis: TEDs, SCDs while in hospital, Lovenox 30mg Subq daily until Hgb stabilizes. Keep Silverlon dressing on until follow up appointment in 2 weeks. May change smaller dressings as needed. Continue care per primary service. D/C planning. Scheduled her a f/u appointment with our office to see Layla Church PA-C on 04-06-19 at 8:30 am. I, Dr. Ferris, saw and examined the patient and discussed the management with my PA. I reviewed my PAs note and agree with the documented findings and the plan of care I developed. Following single unit of pRBCs transfusion earlier today, and recheck of her H&H which was now 9.2. Will recheck her labs in the a.m. Subjective Resting in bed. Was up earlier in the day and felt better than yesterday. Currently her stomach is slightly upset due to eating. Patient resting in bed saying she is tired. Denies F/C/S, CP, SOB. Hasnt been out of bed yet today. Says yesterday stood at bedside with walker. Denies lightheadedness, N/V. SS has discussed with patient DC to Rehab and she is considering. Her pain is controlled. Tolerating PO diet. Physical Exam Physical Exam: Right hip dressings were changed yesterday by Dr Ferris. They are dry and intact with slight pulling up of edges. No redness or warmth. B SCDs intact. Right heel skin protection. NV exam unchanged to B LE. Palpable pulses and neg homans. Sensation altered, Unchanged. R LE with limited ankle and toe dorsiflexion. Dr. Ferris eval RLE: Dressings are clean, dry, intact. Neurovascularly unchanged. Calf is soft. Results & Data Vital Signs (Past 12 Hours) Vital Signs Temp Pulse Pulse Resp BP BP Pulse Ox 03/28/19 07:04 37.1 C 99 H 20 136/75 94 03/28/19 03:25 36.9 C 96 H 20 115/67 92 03/27/19 23:00 37.7 C H 109 H 18 124/70 90 03/27/19 22:21 110 H Laboratory Results 03/28/19 03/28/19 03/28/19 Range/Units 07:30 05:20 05:20 WBC 7.77 (4.8-10.8) K/uL RBC 2.75 L (4.2-5.4) M/uL Hgb 7.8 L (12.0-16.0) g/dL Hct 23.9 L (37-47) % MCV 86.9 (80-100) fL MCH 28.4 (25-34) pg MCHC 32.6 (32-36) g/dL RDW Std Deviation 50.0 H (36.4-46.3) fL RDW Coeff of Neal 15.7 H (11.5-14.5) % Plt Count 160 (130-400) K/uL MPV 9.1 (7.4-10.4) fL Immature Gran % (Auto) 0.5 % Neut % (Auto) 65.2 % Lymph % (Auto) 17.8 % [place] % (Auto) 13.6 % Eos % (Auto) 2.8 % Baso % (Auto) 0.1 % Immature Gran # (Auto) 0.04 H (0.00-0.02) K/uL Neut # (Auto) 5.06 (1.4-6.5) K/uL Lymph # (Auto) 1.38 (1.2-3.4) K/uL [place] # (Auto) 1.06 H (0.11-0.59) K/uL Eos # (Auto) 0.22 (0-0.5) K/uL Baso # (Auto) 0.01 (0-0.2) K/uL Ovalocytes 1+ Sodium 142 (136-145) mmol/L Potassium 3.7 (3.5-5.1) mmol/L Chloride 111 H (98-107) mmol/L Carbon Dioxide 26 (21-32) mmol/L Anion Gap 5.0 (3-11) BUN 8 (7-18) mg/dl Creatinine 0.61 (0.6-1.2) mg/dl Est Cr Clr Drug Dosing 84.9 ml/min Est GFR ( Amer) 107.2 Est GFR (Non-Af Amer) 92.5 BUN/Creatinine Ratio 13.4 (10-20) Glucose 121 H (70-99) mg/dl POC Glucose 168 H (70-99) Estimat Average Glucose mg/dl Hemoglobin A1c (4.5-5.6) % Calcium 7.1 L (8.5-10.1) mg/dl 03/27/19 03/27/19 03/27/19 Range/Units 20:19 16:47 11:41 WBC (4.8-10.8) K/uL RBC (4.2-5.4) M/uL Hgb (12.0-16.0) g/dL Hct (37-47) % MCV (80-100) fL MCH (25-34) pg MCHC (32-36) g/dL RDW Std Deviation (36.4-46.3) fL RDW Coeff of Neal (11.5-14.5) % Plt Count (130-400) K/uL MPV (7.4-10.4) fL Immature Gran % (Auto) % Neut % (Auto) % Lymph % (Auto) % [place] % (Auto) % Eos % (Auto) % Baso % (Auto) % Immature Gran # (Auto) (0.00-0.02) K/uL Neut # (Auto) (1.4-6.5) K/uL Lymph # (Auto) (1.2-3.4) K/uL [place] # (Auto) (0.11-0.59) K/uL Eos # (Auto) (0-0.5) K/uL Baso # (Auto) (0-0.2) K/uL Ovalocytes Sodium (136-145) mmol/L Potassium (3.5-5.1) mmol/L Chloride (98-107) mmol/L Carbon Dioxide (21-32) mmol/L Anion Gap (3-11) BUN (7-18) mg/dl Creatinine (0.6-1.2) mg/dl Est Cr Clr Drug Dosing ml/min Est GFR ( Amer) Est GFR (Non-Af Amer) BUN/Creatinine Ratio (10-20) Glucose (70-99) mg/dl POC Glucose 299 H 128 H 136 H (70-99) Estimat Average Glucose mg/dl Hemoglobin A1c (4.5-5.6) % Calcium (8.5-10.1) mg/dl 03/27/19 Range/Units 06:14 WBC (4.8-10.8) K/uL RBC (4.2-5.4) M/uL Hgb (12.0-16.0) g/dL Hct (37-47) % MCV (80-100) fL MCH (25-34) pg MCHC (32-36) g/dL RDW Std Deviation (36.4-46.3) fL RDW Coeff of Neal (11.5-14.5) % Plt Count (130-400) K/uL MPV (7.4-10.4) fL Immature Gran % (Auto) % Neut % (Auto) % Lymph % (Auto) % [place] % (Auto) % Eos % (Auto) % Baso % (Auto) % Immature Gran # (Auto) (0.00-0.02) K/uL Neut # (Auto) (1.4-6.5) K/uL Lymph # (Auto) (1.2-3.4) K/uL [place] # (Auto) (0.11-0.59) K/uL Eos # (Auto) (0-0.5) K/uL Baso # (Auto) (0-0.2) K/uL Ovalocytes Sodium (136-145) mmol/L Potassium (3.5-5.1) mmol/L Chloride (98-107) mmol/L Carbon Dioxide (21-32) mmol/L Anion Gap (3-11) BUN (7-18) mg/dl Creatinine (0.6-1.2) mg/dl Est Cr Clr Drug Dosing ml/min Est GFR ( Amer) Est GFR (Non-Af Amer) BUN/Creatinine Ratio (10-20) Glucose (70-99) mg/dl POC Glucose (70-99) Estimat Average Glucose 140 mg/dl Hemoglobin A1c 6.5 H (4.5-5.6) % Calcium (8.5-10.1) mg/dl
[2019-03-28] MEDS ORDERED: SODIUM CHLORIDE 0.9% 250 ML IV PRN (10:14)
--- NOTE | 2019-03-28 11:44 | Pharmacy Report ---
Pharmacy Glycemic Short Note 2 - Date of Service March 28, 2019 - Glycemic Short BSG Results (Last 24 hours): 03/27/19 03/27/19 03/27/19 11:41 16:47 20:19 Glucose POC Glucose 136 H 128 H 299 H 03/28/19 03/28/19 05:20 07:30 Glucose 121 H POC Glucose 168 H OUTPATIENT REGIMEN: * Glimepiride * Metformin ASSESSMENT: 03/28 * Sarah Beth received 28 units of insulin yesterday, 12 of this being basal * She has been started on Rocephin for a UTI; otherwise, no change to causes of insulin resistance * Fasting BSG = 121 mg/dL; basal needs ~14 units/day * Current CF/CR appears to be appropriate. HS BSG was elevated last night but I assume po intake with dinner was not covered since it increased from 128 -> 299. 03/27 * Patient received 35 units of insulin yesterday, of which 15 were basal insulin - Fasting BSG this AM 125 mg/dL * Will split in half and give 7 units this AM with scale for tonight * Tightened CR with breakfast this AM, but will loosen for lunch as steroids likely wearing off 03/26 * 68 year old female now s/p hip surgery. Pharmacy consulted for glycemic management. Received dex in OR yesterday BSGs elevated * Received 29 units of insulin yesterday, of which 5 were basal insulin - Fas ting this am elevated at 254 mg/dL; will give Lantus 10 units x1 now * Tighten CF/CR with dinner today PLAN FOR INPATIENT GLYCEMIC CONTROL: * Basal insulin - increase to set dose * Lantus 7 units BID * Bolus insulin - tighten goal range for non-critically ill patient * NovoLog per scale ACHS or Q6hrs while NPO * Goal Range: Low 110 mg/dL - High 140 mg/dL * Correction Factor: 30 mg/dL/unit * Nutritional / Prandial insulin per carb ratio of 1 unit per 9 grams CHO consumed Discharge Recommendations: * A1c = 6.5% on 03/27/19 * Goal < 7% for patient's age/comorbidities * Recommend to resume outpatient orals on discharge
[2019-03-28] MEDS: MoRPHine SULFATE 2 MG/ML CARP IV PRN ×2 (14:55→23:17)
[2019-03-28] MEDS: cefTRIAXone SODIUM 1,000 MG in DEXTROSE 5% 50 ML IV SCH (16:20)
[2019-03-28 16:41] LABS: Hematocrit (blood only) 27.3 % (37-47); Hemoglobin 9.2 g/dL (12.0-16.0)
--- NOTE | 2019-03-28 20:24 | Hospitalist Progress Note ---
Date of Service March 28, 2019 Assessment & Plan (1) Closed right hip fracture: Secondary to mechanical fall --Status post right hip surgery 03/25/2019 Hg 7.8-- management noted below On Lovenox for DVT prophylaxis --CPK level increased to 1000, renal function okay CPK improved to 900s, continue IV NSS -- PT recommending Rehab will discuss with case repairermanager psychiatry on chronic anemia -- hemoglobin drop from baseline (low iron indices on recent outpatient anemia blood work possibly related to gastric bypass surgery; no prior colonoscopies, no history of overt GI/ blood loss as per patient account) past tobacco abuse. --Iron level 146, ferritin 48.5, vitamin B12 232, folate 8.8, essentially normal -- no signs of overt GI bleed -- possible component of acute blood loss from surgery s/p transfusion of 2 units PRBC -- Hg 7.8 1 unit pRBC ordered improved to 9.2 E coli UTI -- (+) low grade fever -- Urine Cx: (+) E coli -- Ceftriaxone IV Day 2/3 improving Constipation -- add Milk of Magnesium PRN Dulcolax suppository Hyperkalemia, possibly from home ACEI, mild rhabdomyolysis (Recurrent hyperkalemia on review of outpatient chemistries from last year) -- resolved -- monitor -- Lisinopril discontinued DM 2 on oral medications, well-controlled as of recent outpatient hemoglobin A1c of 6.5 last February 2019 -- ISS and Lantus BSGs within acceptable range Pharmacy glycemic consult ordered Hypertension, slightly elevated secondary discomfort -- improved, stable -- Lisinopril changed to Amlodipine Hypothyroidism, TSH noted to be elevated on last month's outpatient blood draw (4.59) History of transverse myelitis, deficits at baseline Left renal mass, likely benign and stable measurement as of recent outpatient [facility] [place] [place] Urology visit March 2018 DVT prophylaxis. Lovenox 30 mg subcutaneous daily Full code Disposition PT recommending rehab Subjective ff up for s/p right hip surgery feeling fine overall right hip pain improving, able to do more with PT denies dyspnea, chest pain, dizziness no other symptoms Review of Systems Review of Systems: All systems reviewed & are unremarkable except as noted in HPI & below Physical Exam Physical Exam: General- oriented x 3, not in distress, speaks in sentences with no effort or accessory muscle use Eyes- anicteric Neck- no JVD Lungs- clear BS BL Heart- normal rate, regular rhythm; no murmurs Abdomen- normal bowel sounds, nondistended, soft, nontender Extremities- no pretibial edema, no calf tenderness right hip- moderate edema, no tenderness Neuro- alert, oriented x 3; no new gross focal neurologic deficits Skin- warm & dry Results & Data Vital Signs (Past 12 Hours) Vital Signs Temp Pulse Pulse Resp BP BP Pulse Ox 03/28/19 19:26 37.1 C 90 20 130/58 L 94 03/28/19 15:42 95 03/28/19 15:30 36.8 C 92 H 18 123/72 95 03/28/19 13:45 37.0 C 98 H 18 129/71 94 03/28/19 12:31 36.9 C 101 H 129/73 03/28/19 12:16 37.4 C 100 H 18 129/71 96 03/28/19 11:59 36.8 C 102 H 20 125/72 96 Laboratory Results Laboratory Results - last 24 hr 03/27/19 03/27/19 03/28/19 06:14 20:19 05:20 WBC 7.77 RBC 2.75 L Hgb 7.8 L Hct 23.9 L MCV 86.9 MCH 28.4 MCHC 32.6 RDW Std Deviation 50.0 H RDW Coeff of Neal 15.7 H Plt Count 160 MPV 9.1 Immature Gran % (Auto) 0.5 Neut % (Auto) 65.2 Lymph % (Auto) 17.8 [place] % (Auto) 13.6 Eos % (Auto) 2.8 Baso % (Auto) 0.1 Immature Gran # (Auto) 0.04 H Neut # (Auto) 5.06 Lymph # (Auto) 1.38 [place] # (Auto) 1.06 H Eos # (Auto) 0.22 Baso # (Auto) 0.01 Ovalocytes 1+ Sodium Potassium Chloride Carbon Dioxide Anion Gap BUN Creatinine Est Cr Clr Drug Dosing Est GFR ( Amer) Est GFR (Non-Af Amer) BUN/Creatinine Ratio Glucose POC Glucose 299 H Estimat Average Glucose 140 Hemoglobin A1c 6.5 H Calcium Total Creatine Kinase Blood Type Antibody Screen Crossmatch 03/28/19 03/28/19 03/28/19 05:20 07:30 10:29 WBC RBC Hgb Hct MCV MCH MCHC RDW Std Deviation RDW Coeff of Neal Plt Count MPV Immature Gran % (Auto) Neut % (Auto) Lymph % (Auto) [place] % (Auto) Eos % (Auto) Baso % (Auto) Immature Gran # (Auto) Neut # (Auto) Lymph # (Auto) [place] # (Auto) Eos # (Auto) Baso # (Auto) Ovalocytes Sodium 142 Potassium 3.7 Chloride 111 H Carbon Dioxide 26 Anion Gap 5.0 BUN 8 Creatinine 0.61 Est Cr Clr Drug Dosing 84.9 Est GFR ( Amer) 107.2 Est GFR (Non-Af Amer) 92.5 BUN/Creatinine Ratio 13.4 Glucose 121 H POC Glucose 168 H Estimat Average Glucose Hemoglobin A1c Calcium 7.1 L Total Creatine Kinase Blood Type A Positive Antibody Screen NEGATIVE Crossmatch See Detail 03/28/19 03/28/19 03/28/19 16:06 16:27 16:27 WBC RBC Hgb 9.2 L Hct 27.3 L MCV MCH MCHC RDW Std Deviation RDW Coeff of Neal Plt Count MPV Immature Gran % (Auto) Neut % (Auto) Lymph % (Auto) [place] % (Auto) Eos % (Auto) Baso % (Auto) Immature Gran # (Auto) Neut # (Auto) Lymph # (Auto) [place] # (Auto) Eos # (Auto) Baso # (Auto) Ovalocytes Sodium Potassium Chloride Carbon Dioxide Anion Gap BUN Creatinine Est Cr Clr Drug Dosing Est GFR ( Amer) Est GFR (Non-Af Amer) BUN/Creatinine Ratio Glucose POC Glucose 211 H Estimat Average Glucose Hemoglobin A1c Calcium Total Creatine Kinase 708 H Blood Type Antibody Screen Crossmatch 03/28/19 19:59 WBC RBC Hgb Hct MCV MCH MCHC RDW Std Deviation RDW Coeff of Neal Plt Count MPV Immature Gran % (Auto) Neut % (Auto) Lymph % (Auto) [place] % (Auto) Eos % (Auto) Baso % (Auto) Immature Gran # (Auto) Neut # (Auto) Lymph # (Auto) [place] # (Auto) Eos # (Auto) Baso # (Auto) Ovalocytes Sodium Potassium Chloride Carbon Dioxide Anion Gap BUN Creatinine Est Cr Clr Drug Dosing Est GFR ( Amer) Est GFR (Non-Af Amer) BUN/Creatinine Ratio Glucose POC Glucose 210 H Estimat Average Glucose Hemoglobin A1c Calcium Total Creatine Kinase Blood Type Antibody Screen Crossmatch
[2019-03-28] MEDS: AMLODIPINE BESYLATE 5 MG TAB PO SCH (21:13)
[2019-03-28] MEDS: DOCUSATE SODIUM/SENNA 50/8.6MG TAB PO SCH (21:13)
[2019-03-28 21:44] LABS: BUN Creatinine Ratio 10.9 (10-20); Calcium 7.4 mg/dl (8.5-10.1); Creatinine Clr Calc Pharmacy 58.5 ml/min; Est GFR (African American) 78.8; Potassium 3.5 mmol/L (3.5-5.1)
[2019-03-29] MEDS: SODIUM CHLORIDE 0.9% 1000ML 1,000 ML IV SCH ×2 (01:49→09:49)
[2019-03-29 07:22] LABS: Basophils # (auto) 0.02 K/uL (0-0.2); Basophils % (auto) 0.3 %; Eosinophils # (auto) 0.32 K/uL (0-0.5); Eosinophils % (auto) 4.5 %; Hematocrit (blood only) 26.3 % (37-47); Hemoglobin 8.8 g/dL (12.0-16.0); Immature Granulocytes # (auto) 0.05 K/uL (0.00-0.02); Immature Granulocytes % (auto) 0.7 %; Lymphocytes # (auto) 1.57 K/uL (1.2-3.4); Lymphocytes % (auto) 21.8 %; Mean Corpuscular Hemoglobin 28.7 pg (25-34); Mean Corpuscular Hgb Conc 33.5 g/dL (32-36); Mean Corpuscular Volume 85.7 fL (80-100); Mean Platelet Volume 8.5 fL (7.4-10.4); Monocytes # (auto) 0.88 K/uL (0.11-0.59); Monocytes % (auto) 12.2 %; Neutrophils # (auto) 4.35 K/uL (1.4-6.5); Neutrophils % (auto) 60.5 %; Platelet Count 166 K/uL (130-400); RDW Coefficient of Variation 15.7 % (11.5-14.5); RDW Standard Deviation 48.9 fL (36.4-46.3); Red Blood Count 3.07 M/uL (4.2-5.4); White Blood Count 7.19 K/uL (4.8-10.8)
[2019-03-29 07:58] LABS: BUN Creatinine Ratio 14.4 (10-20); Calcium 7.3 mg/dl (8.5-10.1); Creatinine Clr Calc Pharmacy 88.3 ml/min; Est GFR (African American) 107.8; Potassium 3.4 mmol/L (3.5-5.1)
[2019-03-29] MEDS: INSULIN ASPART 100 UNITS/ML 3 ML PEN SC SCH ×2 (08:53→12:46)
[2019-03-29] MEDS: ENOXAPARIN INJ 30 MG/0.3 ML SYR SQ SCH (08:56)
[2019-03-29] MEDS ORDERED: INSULIN GLARGINE SOLOSTAR 100 UNITS/ML 3 ML PEN SC SCH ×3 (09:00→21:00)
--- NOTE | 2019-03-29 09:15 | Pharmacy Report ---
Pharmacy Glycemic Short Note 2 - Date of Service March 29, 2019 - Glycemic Short BSG Results (Last 24 hours): 03/28/19 03/28/19 03/28/19 16:06 19:59 21:05 Glucose 172 H POC Glucose 211 H 210 H 03/29/19 03/29/19 07:12 07:44 Glucose 135 H POC Glucose 135 H OUTPATIENT REGIMEN: * Glimepiride 1 mg PO daily * Metformin 1000 mg PO BIDM * HbA1c: 6.5% (03/27/19) ASSESSMENT: * Patient is now POD #4 s/p ORIF right hip * Continues on ceftriaxone for UTI * Patient received 31 units of insulin yesterday (14 of which were basal) * Fasting BSG this morning is 135 mg/dL - will continue with 14 units of basal * BSGs ranging 121-211 yesterday - will tighten CF/CR PLAN FOR INPATIENT GLYCEMIC CONTROL: * Basal insulin - continue 14 units of basal * Lantus 9 units given this morning * Will order Lantus 5 units for this evening and plan for 7 units BID thereafter * Bolus insulin - tighten CF/CR * NovoLog per scale ACHS or Q6hrs while NPO * Goal Range: Low 110 mg/dL - High 140 mg/dL * Correction Factor: 25 mg/dL/unit * Nutritional / Prandial insulin per carb ratio of 1 unit per 8 grams CHO consumed Discharge Recommendations: * A1c = 6.5% on 03/27/19 * Goal < 7% for patient's age/comorbidities * Recommend to resume outpatient orals on discharge
[2019-03-29] MEDS: MoRPHine SULFATE 2 MG/ML CARP IV PRN (12:02)
[2019-03-29] MEDS ORDERED: POTASSIUM CHLORIDE 10 MEQ TABCR PO STA (13:33)
--- NOTE | 2019-03-29 13:53 | Hospitalist Progress Note ---
Date of Service March 29, 2019 Assessment & Plan (1) Closed right hip fracture: Secondary to mechanical fall --Status post right hip surgery 03/25/2019 On Lovenox for DVT prophylaxis --CPK level increased to 1000, renal function okay CPK improved to 600s after IV normal saline, continue to encourage oral fluid intake -- PT recommended Rehab Weightbearing as tolerated with walker and assistance To be transition to [facility] -- Continue pain control Continue Lovenox 40 mg subcutaneous daily for DVT prophylaxis times x 6 weeks Please monitor incision site daily Keep Silverlon dressing on until follow up appointment in 2 weeks. May change smaller dressings as needed. --Follow-up with orthopedic clinic with Dr. Barrington whitman of Layla Church PA-C on 04-06-19 at 8:30 am. Acute on chronic anemia --Possible acute blood loss anemia secondary to surgery -- hemoglobin decreased from baseline (low iron indices on recent outpatient anemia blood work possibly related to gastric bypass surgery; no prior colonoscopies, no history of overt GI/ blood loss as per patient account) --Iron level 146, ferritin 48.5, vitamin B12 232, folate 8.8, essentially normal -- no signs of overt GI bleed --Received a total of 3 units of packed RBCs while admitted --Hemoglobin 8.8 on admission Monitor hemoglobin as outpatient E coli UTI -- (+) low grade fever postop -- Urine Cx: (+) E coli --Has received 3 days of ceftriaxone IV Discharge today, afebrile, no urinary symptoms and no abdominal pain Constipation -- Milk of Magnesium PRN Dulcolax suppository Hyperkalemia, possibly from home ACEI, mild rhabdomyolysis (Recurrent hyperkalemia on review of outpatient chemistries from last year) -- resolved -- monitor -- Lisinopril discontinued Potassium 3.4 on admission, given p.o. potassium, monitor potassium level DM 2 on oral medications, well-controlled as of recent outpatient hemoglobin A1c of 6.5 last February 2019 --Given insulin while admitted Resume usual glimepiride and metformin Hypertension, slightly elevated secondary discomfort -- improved, stable -- Lisinopril changed to Amlodipine in light of hyperkalemia Pressure stable now with amlodipine, her blood pressure closely Hypothyroidism, TSH noted to be elevated on last month's outpatient blood draw (4.59) TSH on this admission 6.3 Repeat thyroid function tests in 2 weeks History of transverse myelitis, deficits at baseline Left renal mass, likely benign and stable measurement as of recent [place] [facility] [place] -- ff up with Urologist DVT prophylaxis. Lovenox 40 mg subcutaneous daily x 6 weeks Full code Disposition Discharge to [facility] today Follow-up with orthopedic clinic with Dr. Ferris/Layla Church PA-C on 04-06-19 at 8:30 am. Follow-up with Primary care physician 1 week after discharge from [facility] Subjective ff up for sp right hip surgery seen resting in bed, comfortable In good spirits States she feels fine overall Ambulated better today Denies abdominal pain, urinary symptoms Denies other symptoms States she is ready would like to be discharged today Review of Systems Review of Systems: All systems reviewed & are unremarkable except as noted in HPI & below Physical Exam Physical Exam: General- oriented x 3, not in distress, speaks in sentences with no effort or accessory muscle use Eyes- anicteric Neck- no JVD Lungs- clear breath sounds bilaterally, no wheezing, no crackles Heart- normal rate, regular rhythm; no murmurs Abdomen- normal bowel sounds, nondistended, soft, nontender Extremities- no pretibial edema, no calf tenderness Right hip: Dressing in place, moderate edema noted, no erythema/warmth/tenderness Neuro- alert, oriented x 3; no gross focal neurologic deficits Skin- warm & dry Results & Data Vital Signs (Past 12 Hours) Vital Signs Pulse 03/29/19 07:44 82 Laboratory Results Laboratory Results - last 24 hr 03/28/19 03/28/19 03/28/19 10:29 16:06 16:27 WBC RBC Hgb 9.2 L Hct 27.3 L MCV MCH MCHC RDW Std Deviation RDW Coeff of Neal Plt Count MPV Immature Gran % (Auto) Neut % (Auto) Lymph % (Auto) [place] % (Auto) Eos % (Auto) Baso % (Auto) Immature Gran # (Auto) Neut # (Auto) Lymph # (Auto) [place] # (Auto) Eos # (Auto) Baso # (Auto) Sodium Potassium Chloride Carbon Dioxide Anion Gap BUN Creatinine Est Cr Clr Drug Dosing Est GFR ( Amer) Est GFR (Non-Af Amer) BUN/Creatinine Ratio Glucose POC Glucose 211 H Calcium Total Creatine Kinase Crossmatch See Detail 10/14/19 10/14/19 10/14/19 16:27 19:59 21:05 WBC RBC Hgb Hct MCV MCH MCHC RDW Std Deviation RDW Coeff of Neal Plt Count MPV Immature Gran % (Auto) Neut % (Auto) Lymph % (Auto) [place] % (Auto) Eos % (Auto) Baso % (Auto) Immature Gran # (Auto) Neut # (Auto) Lymph # (Auto) [place] # (Auto) Eos # (Auto) Baso # (Auto) Sodium 141 Potassium 3.5 Chloride 110 H Carbon Dioxide 26 Anion Gap 5.0 BUN 9 Creatinine 0.87 Est Cr Clr Drug Dosing 58.5 Est GFR ( Amer) 78.8 Est GFR (Non-Af Amer) 68.0 BUN/Creatinine Ratio 10.9 Glucose 172 H POC Glucose 210 H Calcium 7.4 L Total Creatine Kinase 708 H 639 H Crossmatch 03/29/19 03/29/19 03/29/19 07:12 07:12 07:44 WBC 7.19 RBC 3.07 L Hgb 8.8 L Hct 26.3 L MCV 85.7 MCH 28.7 MCHC 33.5 RDW Std Deviation 48.9 H RDW Coeff of Neal 15.7 H Plt Count 166 MPV 8.5 Immature Gran % (Auto) 0.7 Neut % (Auto) 60.5 Lymph % (Auto) 21.8 [place] % (Auto) 12.2 Eos % (Auto) 4.5 Baso % (Auto) 0.3 Immature Gran # (Auto) 0.05 H Neut # (Auto) 4.35 Lymph # (Auto) 1.57 [place] # (Auto) 0.88 H Eos # (Auto) 0.32 Baso # (Auto) 0.02 Sodium 141 Potassium 3.4 L Chloride 110 H Carbon Dioxide 25 Anion Gap 6.0 BUN 9 Creatinine 0.60 Est Cr Clr Drug Dosing 88.3 Est GFR ( Amer) 107.8 Est GFR (Non-Af Amer) 93.0 BUN/Creatinine Ratio 14.4 Glucose 135 H POC Glucose 135 H Calcium 7.3 L Total Creatine Kinase Crossmatch 03/29/19 12:01 WBC RBC Hgb Hct MCV MCH MCHC RDW Std Deviation RDW Coeff of Neal Plt Count MPV Immature Gran % (Auto) Neut % (Auto) Lymph % (Auto) [place] % (Auto) Eos % (Auto) Baso % (Auto) Immature Gran # (Auto) Neut # (Auto) Lymph # (Auto) [place] # (Auto) Eos # (Auto) Baso # (Auto) Sodium Potassium Chloride Carbon Dioxide Anion Gap BUN Creatinine Est Cr Clr Drug Dosing Est GFR ( Amer) Est GFR (Non-Af Amer) BUN/Creatinine Ratio Glucose POC Glucose 138 H Calcium Total Creatine Kinase Crossmatch
[2019-03-29] MEDS: cefTRIAXone SODIUM 1,000 MG in DEXTROSE 5% 50 ML IV SCH (14:20)
--- NOTE | 2019-03-29 14:39 | Discharge Summary ---
Date of Service March 29, 2019 Admission HPI Per Admitting Provider History obtained from patient, family, and records. Medical history significant for hypertension, hyperlipidemia as per records, DM 2 on oral medications, transverse myelitis, left renal mass, chronic anemia (baseline hemoglobin 11), past tobacco abuse. Recent confinement July 2004 for sudden onset lower extremity weakness attributed to transverse myelitis. Patient transferred to [facility] [place]. Minimal improvement of neurologic deficits with steroid Rx at [facility] [place]. Patient was entering a local convenience store with her son when she tripped on the sidewalk causing her to fall down on her right side. No head trauma, no chest pain, no S OB, no syncope, no LOC. Patient noted achy right hip pain. Unable to get up. Medical History as above Surgical History : Toe amputation, section, gastric bypass, cataract surgery, vitrectomy, tonsillectomy Family History : Diabetes Personal/Social history : Past tobacco abuse, no EtOH intake, disabled Baseline Functionality : Still able to do housework at the first floor level of her home which has been customized since disability, able to walk with 2 canes, No rest/exertional chest pain, S OB prior to injury Admission Exam Per Admitting Provider GENERAL: Slightly uncomfortable, slightly anxious, no respiratory distress SKIN: Pallor , warm HEENT: Pale palpebral conjunctivae, no ptosis, dry buccal mucosa NECK : Supple, no tenderness CHEST : CTA, no tenderness HEART : Tachycardic , no obvious murmurs ABDOMEN: Some distention, nontender EXTREMITIES : RLE noted to be shortened, right hip tenderness, no other conspicuous deformities noted NEUROLOGIC : Coherent, no facial asymmetry; MMTs BUE 4/5, MMTs BLE 1/5 Principal Diagnosis Closed fracture of proximal end of femur, status post right hip open reduction internal fixation subtrochanteric fracture March 25, 2019 Discharge Exam General- oriented x 3, not in distress, speaks in sentences with no effort or accessory muscle use Eyes- anicteric Neck- no JVD Lungs- clear breath sounds bilaterally, no wheezing, no crackles Heart- normal rate, regular rhythm; no murmurs Abdomen- normal bowel sounds, nondistended, soft, nontender Extremities- no pretibial edema, no calf tenderness Right hip: Dressing in place, moderate edema noted, no erythema/warmth/tenderness Neuro- alert, oriented x 3; no gross focal neurologic deficits Skin- warm & dry Discharge Data Allergies Allergy/AdvReac Type Severity Reaction Status Date / Time aspirin Allergy Unknown CAN NOT Verified 03/24/19 17:37 TAKE DUE TO BLEEDING IN EYES lisinopril AdvReac Mild hyperkalemi Verified 03/25/19 03:26 a Consultations 03/24/19 18:43 ED Decision to Admit Stat 03/24/19 21:43 Consult Case Management - Discharge Planning Routine Consult Case Management - Discharge Planning Routine Consult Orthopedic Surgery Routine 03/25/19 20:23 Consult Case Management - Discharge Planning Routine Procedures Performed Operation Date: 03/25/19 07:05 Actual Procedures p Right Hip Open Reduction Internal Fixation Subtrochanteric Fracture(Right) - Harrison Lit Ferris MD Ordered Studies 03/25/19 15:00 FL fluoroscopy <1hr Routine FL hip RT 2-3V Routine Hospital Course (1) Closed right hip fracture: Secondary to mechanical fall --Closed fracture of proximal end of femur, status post right hip open reduction internal fixation subtrochanteric fracture March 25, 2019 --Management of anemia noted below Pain controlled with IV morphine Management of UTI noted below -- CPK level increased to 1000, renal function okay CPK improved to 600s after IV normal saline, continue to encourage oral fluid intake -- PT recommended Rehab Weightbearing as tolerated with walker and assistance To be transition to [facility] -- Continue pain control Continue Lovenox 40 mg subcutaneous daily for DVT prophylaxis times x 6 weeks Please monitor and dress incision site daily Keep Silverlon dressing on until follow up appointment in 2 weeks. May change smaller dressings as needed. --Follow-up with orthopedic clinic with Dr. Ferris care of Layla Church PA-C on 04-06-19 at 8:30 am. Acute on chronic anemia --Possible acute blood loss anemia secondary to surgery -- hemoglobin decreased from baseline (low iron indices on recent outpatient anemia blood work possibly related to gastric bypass surgery; no prior colonoscopies, no history of overt GI/ blood loss as per patient account) --Iron level 146, ferritin 48.5, vitamin B12 232, folate 8.8, essentially normal -- no signs of overt GI bleed --Received a total of 3 units of packed RBCs while admitted --Hemoglobin 8.8 on admission Monitor hemoglobin as outpatient E coli UTI -- (+) low grade fever postop -- Urine Cx: (+) E coli --Has received 3 days of ceftriaxone IV Discharge today, afebrile, no urinary symptoms and no abdominal pain Constipation -- Milk of Magnesium PRN Dulcolax suppository Hyperkalemia, possibly from home ACEI, mild rhabdomyolysis (Recurrent hyperkalemia on review of outpatient chemistries from last year) -- resolved -- monitor -- Lisinopril discontinued Potassium 3.4 on admission, given p.o. potassium, monitor potassium level DM 2 on oral medications, well-controlled as of recent outpatient hemoglobin A1c of 6.5 last February 2019 --Given insulin while admitted Resume usual glimepiride and metformin Hypertension, slightly elevated secondary discomfort -- improved, stable -- Lisinopril changed to Amlodipine in light of hyperkalemia Blood Pressure stable now with amlodipine, her blood pressure closely Hypothyroidism, TSH noted to be elevated on last month's outpatient blood draw (4.59) TSH on this admission 6.3 Repeat thyroid function tests in 2 weeks History of transverse myelitis, deficits at baseline Left renal mass, likely benign and stable measurement as of recent outpatient [facility] [place] 2018 -- ff up with Urologist DVT prophylaxis. Lovenox 40 mg subcutaneous daily x 6 weeks Full code Disposition Discharge to [facility] today Follow-up with orthopedic clinic with Dr. Ferris/Layla Church PA-C on 04-06-19 at 8:30 am. Follow-up with Primary care physician 1 week after discharge from [facility] Total Time Total Time Spent Total Time Spent (In Minutes): 50 minutes Discharge Plan Discharge Items Reason For Visit: HYPERKALEMIA, R HIP FX Discharge Diagnosis: Right hip fracture, status post mechanical fall, status post right hip surgery Condition on Discharge: Good Activity: As commented below Activity Comment: Continue physical and Occupational Therapy, fall precautions, always assistance Lifting: Wait until after follow-up appointment Exercise/Sports: Wait until after follow-up appointment Weightbearing: Right weightbearing Weightbearing Comment: as tolerated with tyler Non-emergency contact: Primary Care Provider and Surgeon Call non-emergency contact if: you have any medication questions, your symptoms worsen, your pain is not controlled, your pain is worsening, your pain is unusual for you, you have a fever, your wound has increased redness, your wound has increased drainage and your wound pain has increased Follow-up/Referrals: Harrison Ferris MD [Physician] - 04/06/19 8:30 am Hung Kaur MD [Primary Care Provider] - Diet: Carb Consistent or DM2 and Heart Healthy Addtl Attending Provider Instructions: Please refer to accompanying hospital discharge summary for further details. Addtl Peripheral Vascular Tech Provider Instructions: Orthopedic service instructions: *WBAT R LE with walker *Ice right hip/femur 3-5 times a day for 20min at a time for pain and swelling *Dressings are waterproof. Silverlon dressing to remain on until f/u appt. Smaller dressings can be changed as needed. May reinforce with tegaderm if edges start to peel off from skin. *B LE knee high val hose to be worn at all times other than bathing and sleeping. *Pain medication per medicine. *Lovenox 40 milligrams subcutaneous daily Pending Studies at Discharge: Yes Studies:: Repeat hemoglobin and potassium in 2 to 3 days, monitor regularly; Refer to accompanying hospital discharge summary for complete details Stand-Alone Forms: My [facility] Skilled Items Patient informed of condition?: Yes DNR: No Discharge Level of Care: Acute rehab Communicable Disease: No Discharge Prognosis: Stable Lines: None Urinary Catheter: Yes Medications and DC Order Prescriptions: New enoxaparin [Lovenox] 40 mg/0.4 mL syringe 40 mg SQ DAILY 42 Days Qty: 16.8 RF: 0 amlodipine [Norvasc] 5 mg Tablet 2.5 mg PO HS 30 Days Qty: 15 RF: 2 oxycodone 5 mg Tablet 10 mg PO Q4H PRN (Reason: pain) 7 Days Qty: 14 RF: 0 magnesium hydroxide [Milk of Magnesia] 400 mg/5 mL Suspension 30 ml PO DAILY PRN (Reason: constipation) 7 Days Qty: 70 RF: 2 sennosides-docusate sodium [Senokot-S] 8.6-50 mg Tablet 2 tab PO HS 7 Days Qty: 14 RF: 1 Continued glimepiride 1 mg tablet PO DAILY RF: 0 levothyroxine 50 mcg tablet PO DAILYBB RF: 0 metformin 1,000 mg tablet 1,000 mg PO AMPM RF: 0 diazepam 5 mg tablet 5 mg PO HS PRN (Reason: Unknown) RF: 0 Discontinued lisinopril 5 mg tablet 5 mg PO DAILY RF: 0 Admission Data Admit Date/Time: 03/24/19 20:20 Attending Provider: Alvaro James Admit Provider: Murali Salomon Primary Care Provider: Hung Kaur Other Providers: Constantin Salvador ; Harrison Ferris ; [facility]
[2019-03-29] MEDS: ACETAMINOPHEN 325 MG TAB PO PRN (16:26)
[2019-03-30] MEDS ORDERED: INSULIN GLARGINE SOLOSTAR 100 UNITS/ML 3 ML PEN SC SCH (09:00)
== END 2019-03-29 16:41 | DRG 481 ==
LOC: ED 17:06 → 2N 20:20